=== PATIENT | male | born 1955 | race Caucasian/White ===

== ENCOUNTER → 2016-07-05 08:23 | Outpatient (CLI) | payer BC ==
[2015-11-10 12:37] VITALS: BMI 35.2
[~2016-07-05 08:23] MED LIST: ELAVIL25 MG PO; JANUMET XR 50-1 EACH; KOMBIGLYZE XR1 EAC1; LEVOTHYROXINE75 MCG; LEVOXYL75 MCG PO; PRINIVIL20 MG; PRINIVIL20 MG PO; ZOCOR10 MG PO
--- NOTE | 2016-07-05 12:11 | NUR ---
Nutrition education for DMT2: Pt reports skipping lunch every day; pt is drinking several Mt. Dews, sweet tea every day; pt may drink 1 glass of water in a day. Pt also drinks a lot of Gartorade, especially during the summer months. 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 Pt will not eat any nonstarchy vegetable; pt only eats starch and meat. Ht: 6'1" Wt: 249# IBW: 184# +/- 10% BMI: 32.8 Reviewed CHO containing foods and the affect CHO have on glucose. Reviewed portion sizes of common CHO foods. Stressed the importance of eating meals at consistent times and to never skip meals. Advised pt to eliminate sugary drinks and drink only water to quench thirst. Advised pt to decrease the amount of CHO eaten at meals. Also advised pt to add a daily multivitamin due to pt not eating any nonstarchy vegetables. Reviewed the plate method of meal planning; reviewed sample menus with emphasis on CHO foods. Reviewed complication of uncontrolled DMT2; reviewed normal glucose numbers. Advised pt to check glucose readings @ least 4 times a day (fasting, before breakfast, 2 hours after breakfast, lunch dinner) for at least 1 week and record to have the big picture of where his glucose numbers are. Provided pt with printed diet information and RDN name and phone number. Pt with good understanding of information provided; however, RDN feels pt will not be compliant with all recommendations. RDN will be availalble if needed Thank you for the consult.
--- NOTE | 2016-07-05 12:24 | NUR ---
Nutrition education for gastric sleeve: S: Pt has been overweight since ~15 years old. Pt has tried several diets to lose weight without any success. Pts mother states pt does not eat very much and blames all her weight gain on medication for depression. Pt's diet recall reveals pt is eating quite a bit of food. Pt is drinking massive amounts of diet soda every day and getting very little exercise. Pt is very reluctant to answer my questions and looks to her mother to answer. However, as the session continued the pt has warmed up to me and is now asking questions. O: Ht: 5'2" Wt: 303# IBW: 110# +/-10% BMI: 55.4 Dx: extreme obesity A: Pt and mother are in denial about how much pt is eating during the day. RDN reviewed pre/post op diet progression. Reviewed diet homework to start today and make a habit before surgery. Pt advised to eliminate all carbonated beverages from diet and start drinking water. Pt to start taking multivitamin now. Pt does not have a post-surgery weight loss goal at this time. Pt states she will talk with doctor about this. Sample menus reviewed; protein supplements reviewed. P: Provided pt with printed diet information and RDN name and phone number. Pt has been reading the provided information from Dr. Borrero every day per mother. Pt seems to be ready to make the diet changes necessary to be successful post-surgery. RDN will be available if needed. Thank you for the consult.
== END | disposition home or self-care (01) ==
LOC: D.FANS 08:23
DX: E11.9 Type 2 diabetes mellitus without complications (principal)

== ENCOUNTER 2018-04-24 09:04 | Inpatient (IN) | payer BC ==
[~2018-04-24] VITALS: Ht 185.4 cm; Wt 108.2 kg
--- NOTE | ~2018-04-24 | CN ---
PATIENT NAME:MODESTO PEACOCK MEDICAL RECORD: [id number] : 57 LOCATION:D. D.2136 ADMIT DATE: 04/24/18 ACCOUNT: [id number] CONSULTING PHYSICIAN: ESTHELA WARNER MD REFERRING PHYSICIAN: ROBERT GEORGE DO DATE OF CONSULTATION: 04/27/2018 CONSULT REQUESTING PHYSICIAN: Robert George DO REASON FOR CONSULTATION: Pneumonia. HISTORY OF PRESENT ILLNESS: Mr. Peacock is a 62-year-old gentleman who is very hard of hearing. The history was taken by talking to the patient's . Initially, he was seen in the urgent care. He was given Rocephin injection, but the patient was not getting any fever. He has a running fever and shortness of breath. In the ER evaluation, found out he has a left lower lobe pneumonia. Repeat chest x-ray showed he has bilateral lower lobe infiltrate with associated atelectasis. The patient had a reaction to Bactrim a few days ago while he had a procedure in [place]. So, the family is not sure that it was the previous skin rash and erythema that he reacted to Rocephin, that had been discontinued and started on him a renal dose of Levaquin. REVIEW OF SYSTEMS: As in history of present illness. PAST MEDICAL HISTORY: 1. Gastroesophageal reflux disease. 2. Hypertension. 3. Chronic backache. 4. Hearing aid implant. 5. History of multiple sclerosis. PAST SURGICAL HISTORY: 1. He had a cholecystectomy in 2009. 2. He had a hearing implant. ALLERGIES: HE IS ALLERGIC TO BACTRIM. MEDICATIONS: He is on Levaquin. His other medication is reviewed. PERSONAL AND SOCIAL HISTORY: The patient never smoked and nondrinker. FAMILY HISTORY: Noncontributory. PHYSICAL EXAMINATION: GENERAL: Now, the patient is lying comfortably in bed. He is not in acute distress. VITAL SIGNS: The blood pressure is 148/64, pulse is 89, respiration is 18, temperature 97.9, SPO2 is 93% on room air. HEENT: Conjunctivae are pink. Sclerae are not icteric. NECK: Supple, no JVD. CHEST: The chest excursion is minimal both sides. There are bilateral crackles. No wheezing. HEART: Rhythm regular, normal sound, no murmur. ABDOMEN: Soft, bowel sounds present. No hepatosplenomegaly. RECTAL: Deferred. CONSULT REPORT [id number] MODESTO PEACOCK EXTREMITIES: No cyanosis, no clubbing, no pedal edema. SKIN: Warm, normal turgor. CENTRAL NERVOUS SYSTEM: The patient was hard of hearing. There is no other cranial nerve abnormality. IMAGING: Chest radiograph with the bilateral lower lobe infiltrate with associated atelectasis. LABORATORY DATA: CBC: WBC 13.3, hemoglobin 12.1, hematocrit 34.2, the platelet count 168. Chemistry: Sodium 129, potassium is 4.3, chloride 97, BUN is 67, creatinine 5.8, glucose 271. D-dimer was 2.97. IMPRESSION: 1. Pneumonia, bilateral lower lobe, most likely community-acquired pneumonia. 2. Drug reaction to antibiotic. 3. Acute kidney injury. 4. Skin rash secondary to drug reaction. 5. Leukocytosis. 6. Positive D-dimer, rule out PTE. The patient has a low probability V/Q scan. 7. Gastroesophageal reflux disease. RECOMMENDATION: 1. Antibiotic per ID. 2. Check ultrasound of the lower extremity to rule out DVT. 3. Flutter q.2. hourly when awake. 4. Follow up labs and chest radiograph. 5. The nephrology follows for the acute renal failure. Follow up labs and chest radiograph. Dr. George, thank you for involving me in the care of Mr. Peacock. TRANSINT:[id number] Voice Confirmation ID: [id number] DOCUMENT ID: [id number] ESTHELA WARNER MD at 1234 CC: [id number] DICTATION DATE: 04/27/18 1529 [facility] HEAD: 04/27/18 1553 DIS IN 04/30/18 [id number] [place] [address]
--- NOTE | ~2018-04-24 | MORECARE ---
CASE MANAGEMENT DISCHARGE SUMMARY PATIENT: MODESTO PEACOCK UNIT: [id number] ADM DATE: 04/24/18 AGE: 62 : 57 SEX: M ROOM/BED: D.2136 AUTHOR: MARCIE DINH PHYSICIAN: REFERRING PHYSICIAN: SYLVIA GEORGE DO DATE OF SERVICE: 04/27/18 Discharge Plan Patient Name: MODESTO PEACOCK Facility: [facility]:[place] : 1955 Planned Disposition: Home Anticipated Discharge Date: Discharge Date: Expected LOS: Initial Reviewer: [email or web address] Initial Review Date: 04/27/2018 Generated: 04/27/18 6:08 pm Comments DCP- Discharge Planning Updated by [email or web address]: Cristi Dailey on 04/27/18 4:[address] Patient Name: MODESTO PEACOCK Admission Status: ER Accout number: [id number] Admission Date: 04-24-2018 : 1955 Admission Diagnosis:ACUTE KIDNEY FAILURE, UNSPECIFIED Attending: Sylvia George Current LOS: 3 Anticipated DC Date: Planned Disposition: Home Primary Insurance: [employer] EXCHANGE Discharge Planning Comments: CM MET WITH PT AND SPOUSE IN ROOM TO DISCUSS DISCHARGE PLANNING AND NEEDS. MODESTO PEACOCK provided verbal consent to discuss current and ongoing needs with/in the presence of: SPOUSE, REMEDIOS. PT REPORTS LIVING AT HOME INDEPENDENTLY WITH SPOUSE. PT HAS NO MEDICAL EQUIPMENT AND NO OUTSIDE SERVICES ASSISTING IN THE HOME. CM DISCUSSED AVAILABILITY OF HOME HEALTH, REHAB SERVICES AND MEDICAL EQUIPMENT. PT DENIES DISCHARGE NEEDS, REPORTS HIS WILL PICK HIM UP FOR DISCHARGE HOME. PT PLANS TO DISCHARGE HOME WITH SPOUSE, HAS NO ANTICIPATED DISCHARGE NEEDS AT THIS TIME. CM TO FOLLOW AND ASSIST IF NEEDED. Line Decorator: Cristi Dailey DCPIA - Discharge Planning Initial Assessment Updated by [email or web address]: Cristi Dailey on 04/27/18 4:59 pm * Is the patient Alert and Oriented? Yes * How many steps to enter\exit or inside your home? 7-8 * PCP DR. GEORGE * Pharmacy [facility] [address] * Preadmission Environment Home with Family * ADLs Independent * Equipment None * Other Equipment NO MEDICAL EQUIPMENT PROVIDER PREFERENCE * List name and contact numbers for known caregivers / representatives who currently or will assist patient after discharge: REMEDIOS PEACOCK, SPOUSE, * Verbal permission to speak to the caregivers and representatives has been obtained from the patient. Yes * Community resources currently utilized None * Please name any agencies selected above. NONE * Additional services required to return to the preadmission environment? No * Can the patient safely return to the preadmission environment? Yes * Has this patient been hospitalized within the prior 30 days at any hospital? No Patient Name: MODESTO PEACOCK Page 53123 at 1708 All edits/amendments must be made on the electronic document DICTATION DATE: 04/27/181707 ACCOUNT RESOLUTION SPECIALIST: RICKEY 04/27/181707 RPT#: [id number] MA DATE: STATUS: ADM IN [facility] [address] [place] [address] END OF REPORT
--- NOTE | ~2018-04-24 | EC ---
PATIENT:MODESTO PEACOCK DATE OF SERVICE: 04/24/18 SEX: M MEDICAL RECORD: [id number] DATE OF : [birth year] LOCATION:D.M2 D.213 AGE OF PATIENT: 62 ADMISSION DATE: 04/24/18 REFERRING PHYSICIAN: INTERPRETING PHYSICIAN: JOAO LOCO MD ECHOCARDIOGRAM REPORT ECHO CHARGES 4 ECHO COMPLETE Date: 04/30/18 CLINICAL DIAGNOSIS: AFIB ECHOCARDIOGRAPHIC MEASUREMENTS (adult normal given) AC root (d.<3.7cm) 2.9 cm LV Septum d (<1.2 cm> 1.1 cm Valve Excursion 1.0 cm LV Septum (systole) 1.3 cm Left Atria (s.<4.0cm> 3.5 cm LVPW d(<1.2cm) 1.4 cm RV (d.<2.3cm) 3.9 cm LVPW (sytole) 1.5 cm LV diastole(<5.6CM) 5.4 cm MV E-F(>70mm/sec) cm LV systole 4.5 cm LVOT Diameter 2.3 cm MV exc.(>10mm) cm Est.ejection fraction (50-75%) % DOPPLER: LVIT cm/sec A 56 cm/sec E 88 cm/sec LA cm/sec RVSP 33.3 mmHg LVOT 121 cm/sec AOP1/2T m/s Asc. Ao 175 cm/sec RVOT 63 cm/sec RA cm/sec PA 71 cm/sec AV Gradient Peak 12.3 mmHg AV Mean 7.1 mmHg AV Area 2.5 cm MV Gradient Peak 6.5 mmHg MV Mean 2.2 mmHg MV Area cm COMMENTS: Dispersion Mixer: Ti GREENANEUDY RANDY Color Matcher: 1 Dr. Loco TAPE# PACS Pericardial Effusion N DATE OF SERVICE: 04/30/2018 PROCEDURE: Echocardiogram. FINDINGS: 1. Left ventricle chamber size is within normal limits. Left ventricular systolic function is normal. Overall ejection fraction estimated at 50%. 2. Left atrium is within normal limits at 4.0 cm. Right atrium and right ventricle chamber sizes are mildly dilated. 3. Valvular structure have normal structure and motion. ECHOCARDIOGRAM REPORT [id number] MODESTO PEACOCK 4. Doppler interrogation reveals moderate mitral regurgitation, mild tricuspid regurgitation, no other valvular insufficiency or stenosis. Pulmonary systolic pressure is estimated normal at 33 mmHg. 5. No evidence of pericardial effusion or left ventricular thrombus. TRANSINT:[id number] Voice Confirmation ID: [id number] DOCUMENT ID: [id number] JOAO LOCO MD at 1059 CC: [id number] DICTATION DATE: 04/30/181804 FLOWER CHENILLER: 04/30/182049 DIS IN 04/30/18 [id number] [place] [id number]
--- NOTE | ~2018-04-24 | CN ---
PATIENT NAME:MODESTO PEACOCK MEDICAL RECORD: [id number] : 57 LOCATION:D. D.2136 ADMIT DATE: 04/24/18 ACCOUNT: [id number] CONSULTING PHYSICIAN: JOAO HERNANDEZ MD REFERRING PHYSICIAN: SYLVIA GEORGE DO DATE OF CONSULTATION: 04/30/2018 CARDIOLOGY CONSULT DIAGNOSES: 1. Atrial fibrillation. 2. Pneumonia. 3. Anemia. 4. Renal insufficiency. 5. Shortness of breath, dyspnea on exertion. 6. Diabetes. HISTORY OF PRESENT ILLNESS: This is a gentleman who presents with shortness of breath, dyspnea on exertion, found to have pneumonia. Initially, he was in sinus rhythm. He is now in atrial fibrillation. He is with a controlled rate of the atrial fibrillation. He has no previous cardiac history, no previous cardiac workup. He is currently on no AV blocking medications. The rate is approximately 100 with the atrial fibrillation. PHYSICAL EXAMINATION: GENERAL APPEARANCE: Well-nourished, well-developed, appears stated age. Level of distress, comfortable. PSYCHIATRIC: Mental status, alert, normal affect. Orientation, oriented to time, place and person. EYES: Lids and conjunctiva, noninjected. No discharge, no pallor. ENT: Lips, teeth, gums, normal dentition. Oropharynx, no cyanosis, no pallor. NECK: Carotid arteries, bilateral normal upstroke, no bruits, no thrills. JUGULAR VEINS: No jugular venous pressure or distention. CERVICAL LYMPH NODES: Nontender, nonenlarged. THYROID: Not enlarged. Nontender. No nodules. LUNGS: Respiratory effort, unlabored. CHEST: Normal curvature. No thoracic deformity. No chest wall tenderness. Percussion, resonant. Auscultation, clear. No wheezes, no rales, no rhonchi. CARDIOVASCULAR: Precordial exam, nondisplaced. No heaves or pericardial thrills. Rate and rhythm, regular. Heart sounds, normal S1, normal S2. No S3, no gallop, no rub. Systolic murmur, not heard. Diastolic murmur, not heard. EXTREMITIES: No cyanosis, no edema. Peripheral pulses, full and equal in all extremities, except as noted. No bruits appreciated. ABDOMEN: Soft, nondistended. Normal aorta. No bruit. Nontender. No masses. Liver, nontender, no hepatomegaly. Spleen, nontender, no splenomegaly. MUSCULOSKELETAL: No joint tenderness. No joint swelling. No erythema. NEUROLOGICAL: Normal gait, normal strength, normal tone. SKIN: Warm and dry. REVIEW OF SYSTEMS: The patient reports easy bruising but reports no swollen glands. The patient reports no fever, no night sweats, no significant weight gain, no significant weight loss. No significant exercise tolerance. The patient reports no dry eyes, no irritation, no vision change. Patient reports no difficulty hearing and no ear pain. Patient reports no frequent nose bleeds or nose and sinus problems. Patient reports on arm pain on exertion. No CONSULT REPORT [id number] MADONNAMODESTO PEDERSEN shortness of breath while lying down. No history of heart murmur. Patient reports no cough, no wheezing or coughing up blood. Patient reports no abdominal pain, no vomiting. Normal appetite. No diarrhea and not vomiting blood. No nausea and no constipation. Patient reports no incontinence. No difficulty urinating. No hematuria. No increased frequency. Patient reports no muscle aches. No weakness, no arthralgias, no back pain. No swelling of the extremities. Patient reports no abnormal mole, no jaundice, no rashes. Reports no loss of consciousness. No weakness and no numbness. No seizures, dizziness, or headaches. The patient reports no depression, no sleep disturbance, feeling safe in a relationship and no alcohol abuse. Patient reports on fatigue. Reports no runny nose or sinus pressure. No itching, no hives, and no frequent sneezing. OVERALL IMPRESSION: New onset atrial fibrillation. We will get an echocardiogram for workup and proceed with starting sotalol at 80 mg b.i.d. Hopefully, this will restore sinus rhythm. TRANSINT:[id number] Voice Confirmation ID: [id number] DOCUMENT ID: [id number] JOAO HERNANDEZ MD at 1059 CC: [id number] DICTATION DATE: 04/30/1849 REHAB MANAGER: 04/30/18 1023 DIS IN 04/30/18 [facility] [address] [place] [id number]
--- NOTE | ~2018-04-24 | MORECARE ---
CASE MANAGEMENT DISCHARGE SUMMARY PATIENT: MODESTO PEACOCK UNIT: [id number] ADM DATE: 04/24/18 AGE: 62 : 57 SEX: M ROOM/BED: D.2136 AUTHOR: MARCIE DINH PHYSICIAN: REFERRING PHYSICIAN: SYLVIA GEORGE DO DATE OF SERVICE: 05/01/18 Discharge Plan Patient Name: MODESTO PEACOCK Facility: [facility]:[place] : 1955 Planned Disposition: Home Anticipated Discharge Date: 04/30/18 Discharge Date: 04/30/2018 Expected LOS: 6 Initial Reviewer: [email or web address] Initial Review Date: 04/27/2018 Generated: 05/01/18 9:16 am Comments DCP- Discharge Planning Updated by [email or web address]: Cristi Dailey on 04/27/18 5:[address] Patient Name: MODESTO PEACOCK Admission Status: ER Accout number: [id number] Admission Date: 04-24-2018 : 1955 Admission Diagnosis:ACUTE KIDNEY FAILURE, UNSPECIFIED Attending: Sylvia George Current LOS: 3 Anticipated DC Date: Planned Disposition: Home Primary Insurance: [employer] EXCHANGE Discharge Planning Comments: CM MET WITH PT AND SPOUSE IN ROOM TO DISCUSS DISCHARGE PLANNING AND NEEDS. MODESTO PEACOCK provided verbal consent to discuss current and ongoing needs with/in the presence of: SPOUSE, REMEDIOS. PT REPORTS LIVING AT HOME INDEPENDENTLY WITH SPOUSE. PT HAS NO MEDICAL EQUIPMENT AND NO OUTSIDE SERVICES ASSISTING IN THE HOME. CM DISCUSSED AVAILABILITY OF HOME HEALTH, REHAB SERVICES AND MEDICAL EQUIPMENT. PT DENIES DISCHARGE NEEDS, REPORTS HIS WILL PICK HIM UP FOR DISCHARGE HOME. PT PLANS TO DISCHARGE HOME WITH SPOUSE, HAS NO ANTICIPATED DISCHARGE NEEDS AT THIS TIME. CM TO FOLLOW AND ASSIST IF NEEDED. Population Health Coach: Cristi Dailey DCPIA - Discharge Planning Initial Assessment Updated by [id number]: Cristi Dailey on 04/27/18 4:59 pm * Is the patient Alert and Oriented? Yes * How many steps to enter\exit or inside your home? 7-8 * PCP DR. GEORGE * Pharmacy [facility] [address] * Preadmission Environment Home with Family * ADLs Independent * Equipment None * Other Equipment NO MEDICAL EQUIPMENT PROVIDER PREFERENCE * List name and contact numbers for known caregivers / representatives who currently or will assist patient after discharge: REMEDIOS PEACOCK, SPOUSE, * Verbal permission to speak to the caregivers and representatives has been obtained from the patient. Yes * Community resources currently utilized None * Please name any agencies selected above. NONE * Additional services required to return to the preadmission environment? No * Can the patient safely return to the preadmission environment? Yes * Has this patient been hospitalized within the prior 30 days at any hospital? No Last DP export: 04/27/18 5:08 p Patient Name: MODESTO PEACOCK Page 94490 at 0816 All edits/amendments must be made on the electronic document DICTATION DATE: 05/01/18815 SHARED SERVICES REPRESENTATIVE: RICKEY 05/01/18815 RPT#: [id number] DC DATE:04/30/18 STATUS: DIS IN [facility] [address] [place] [address] END OF REPORT
[2018-04-24] MEDS ORDERED: PRED FORTE5 ML LEFT EYE ×2 (09:09→15:09)
[2018-04-24] MEDS ORDERED: ZYLOPRIM100 MG PO (09:10)
[2018-04-24] MEDS ORDERED: OMEPRAZOLE40 MG PO (09:10)
[2018-04-24] MEDS ORDERED: CENTRUM COMPLE1 EACH PO (09:10)
[2018-04-24] MEDS ORDERED: GLIPIZIDE10 MG PO (09:11)
[2018-04-24 10:43] LABS: BASOPHILS 0.1 % (0-2); EOSINOPHILS 2.8 % (0-7); HEMATOCRIT 42.4 % (42.0-54.0); IMMATURE GRANULOCYTES 1.7 % (0-5); LYMPHOCYTES 3.7 % (15-50); MCH 30.2 pg (26.0-34.0); MCHC 35.4 g/dL (31.0-37.0); MCV 85.3 fL (80.0-100.0); MEAN PLATELET VOLUME 9.4 fL (7.4-10.4); MONOCYTES 2.7 % (2-11); RBC 4.97 10x6/uL (4.20-6.10); RDW 12.8 % (11.5-14.5); WBC 8.1 10x3/uL (4.8-10.8)
[2018-04-24 10:52] LABS: APTT 22.6 SECONDS (22.8-39.4); INR 1.18 (0.85-1.17); PROTIME 14.6 SECONDS (11.6-15.0)
[2018-04-24 10:53] LABS: D-DIMER-QUANTITATIVE 2.97 ug/mLFEU (0.20-0.54)
[2018-04-24 10:54] LABS: PLATELET COUNT 167 10x3/uL (130-400)
[2018-04-24 10:57] LABS: ALBUMIN 3.4 g/dL (3.4-5.0); ALKALINE PHOSPHATASE 323 U/L (46-116); ALT (SGPT) 225 U/L (10-68); CALC OSMOLALITY 268 mosm/kg (275-300); CALCIUM 9.3 mg/dL (8.5-10.1); CARBON DIOXIDE 22.6 mmol/L (21.0-32.0); CHLORIDE - SERUM 94 mmol/L (98-107); CREATININE - SERUM 2.9 mg/dL (0.6-1.3); POTASSIUM - SERUM 4.7 mmol/L (3.5-5.1); PROTEIN - SERUM 7.6 g/dL (6.4-8.2); SODIUM 129 mmol/L (136-145); UREA NITROGEN 29 mg/dL (7-18); eGFR NON AFRICAN AMERICAN 24 mL/min (90-120)
[2018-04-24 10:58] LABS: GLUCOSE 177 mg/dL (74-106)
[2018-04-24 11:09] LABS: CKMB 1.4 U/L (0.0-3.6); CREATINE KINASE 311 UL (21-232); TROPONIN-I < 0.017 ng/mL (0.000-0.060)
[2018-04-24 13:34] LABS: AMORPHOUS SEDIMENT >1+ /lpf (NONE SEEN); APPEARANCE CLOUDY (CLEAR); BACTERIA FEW /hpf (NONE SEEN); BILIRUBIN NEGATIVE (NEGATIVE); COLOR DK YELLOW (YELLOW); EPITHELIAL CELLS NSEEN /hpf (0-5); GLUCOSE NEGATIVE (NEGATIVE); KETONE NEGATIVE (NEGATIVE); NITRITE NEGATIVE (NEGATIVE); PROTEIN 2+ mg/dL (NEGATIVE); RED CELLS - URINE RARE /hpf (0-5); UROBILINOGEN NORMAL (NORMAL); WHITE CELLS - URINE 0-5 /hpf (0-5)
[2018-04-24 13:53] VITALS: BP 141/66
[2018-04-24 15:48] VITALS: BP 138/72
[2018-04-24 16:10] VITALS: BP 138/72; BMI 31.6
[2018-04-24 20:00] VITALS: BP 125/53
[2018-04-25] VITALS: BP 104/46
[2018-04-25 04:00] VITALS: BP 102/47
[2018-04-25 05:02] LABS: BASOPHILS 0.1 % (0-2); EOSINOPHILS 2.9 % (0-7); HEMATOCRIT 37.4 % (42.0-54.0); HEMOGLOBIN 13.2 g/dL (13.5-17.5); IMMATURE GRANULOCYTES 1.1 % (0-5); LYMPHOCYTES 4.4 % (15-50); MCH 29.5 pg (26.0-34.0); MCHC 35.3 g/dL (31.0-37.0); MCV 83.7 fL (80.0-100.0); MEAN PLATELET VOLUME 9.2 fL (7.4-10.4); NEUTROPHILS 89.5 % (40-80); PLATELET COUNT 160 10x3/uL (130-400); RBC 4.47 10x6/uL (4.20-6.10); RDW 12.9 % (11.5-14.5); WBC 9.4 10x3/uL (4.8-10.8)
[2018-04-25 05:19] LABS: ANION GAP 18.6 mmol/L (8-16); CALCIUM 7.7 mg/dL (8.5-10.1); CARBON DIOXIDE 18.8 mmol/L (21.0-32.0); POTASSIUM - SERUM 4.4 mmol/L (3.5-5.1)
[2018-04-25 05:24] LABS: CREATININE - SERUM 5.1 mg/dL (0.6-1.3)
[2018-04-25 06:29] LABS: ALBUMIN 2.7 g/dL (3.4-5.0); BILIRUBIN - DIRECT 2.14 mg/dL (0.00-0.30); BILIRUBIN - INDIRECT 0.35 mg/dL (0.00-1.00); BILIRUBIN - TOTAL 2.49 mg/dL (0.2-1.3); PROTEIN - SERUM 6.2 g/dL (6.4-8.2)
[2018-04-25 08:30] VITALS: BP 108/60
[2018-04-25 11:28] VITALS: BP 118/46
[2018-04-25 13:53] VITALS: BMI 30.8
[2018-04-25 16:48] VITALS: BP 129/59
[2018-04-25 20:00] VITALS: BP 121/61
[2018-04-25 21:43] LABS: APPEARANCE HAZY (CLEAR); BILIRUBIN 2+ (NEGATIVE); COLOR DK YELLOW (YELLOW); GLUCOSE NEGATIVE (NEGATIVE); KETONE NEGATIVE (NEGATIVE); NITRITE NEGATIVE (NEGATIVE); PROTEIN 1+ mg/dL (NEGATIVE); SPECIFIC GRAVITY 1.015 (1.005-1.020); UROBILINOGEN NORMAL (NORMAL)
[2018-04-25 21:47] LABS: AMORPHOUS SEDIMENT >1+ /lpf (NONE SEEN); BACTERIA MANY /hpf (NONE SEEN); GRANULAR CAST 0-5 /lpf (NONE SEEN); HYALINE CAST RARE /lpf (NONE SEEN); MUCUS <1+ /lpf (NONE SEEN); RED CELLS - URINE OCC /hpf (0-5); WHITE CELLS - URINE 0-5 /hpf (0-5)
[2018-04-25 21:52] LABS: POTASSIUM - URINE 32.5 MMOL/L (12.0-62.0); PRO/CRE RATIO URINE 0.8 mg/g; PROTEIN - URINE 123.9 mg/dL (0.0-11.9)
[2018-04-26] VITALS: BP 118/54
[2018-04-26 04:00] VITALS: BP 120/64
[2018-04-26 05:28] LABS: ALBUMIN 2.2 g/dL (3.4-5.0); BILIRUBIN - TOTAL 2.58 mg/dL (0.2-1.3); CARBON DIOXIDE 17.4 mmol/L (21.0-32.0); MAGNESIUM - SERUM 1.3 mg/dL (1.8-2.4); PHOSPHOROUS 2.1 mg/dL (2.5-4.9); PROTEIN - SERUM 5.6 g/dL (6.4-8.2)
[2018-04-26 05:32] LABS: ANION GAP 18.8 mmol/L (8-16); CREATININE - SERUM 6.4 mg/dL (0.6-1.3); POTASSIUM - SERUM 5.2 mmol/L (3.5-5.1)
[2018-04-26 05:52] LABS: BASOPHILS 0.2 % (0-2); EOSINOPHILS 1.1 % (0-7); HEMOGLOBIN 12.3 g/dL (13.5-17.5); IMMATURE GRANULOCYTES 0.9 % (0-5); LYMPHOCYTES 8.3 % (15-50); MCH 29.4 pg (26.0-34.0); MCHC 35.1 g/dL (31.0-37.0); MCV 83.7 fL (80.0-100.0); MEAN PLATELET VOLUME 9.2 fL (7.4-10.4); NEUTROPHILS 87.5 % (40-80); PLATELET COUNT 146 10x3/uL (130-400); RBC 4.18 10x6/uL (4.20-6.10); RDW 13.1 % (11.5-14.5); WBC 8.1 10x3/uL (4.8-10.8)
[2018-04-26 08:10] VITALS: BP 136/71
[2018-04-26 11:19] VITALS: BP 122/69
[2018-04-26 14:25] LABS: ANION GAP 20.7 mmol/L (8-16); CALCIUM 7.8 mg/dL (8.5-10.1); CARBON DIOXIDE 15.6 mmol/L (21.0-32.0); CREATININE - SERUM 6.5 mg/dL (0.6-1.3); POTASSIUM - SERUM 4.3 mmol/L (3.5-5.1)
[2018-04-26 15:28] VITALS: BP 106/73
[2018-04-26 20:00] VITALS: BP 129/64
[2018-04-27] VITALS: BP 112/47
[2018-04-27 04:00] VITALS: BP 125/57
[2018-04-27 07:06] LABS: BASOPHILS 0.4 % (0-2); EOSINOPHILS 0.3 % (0-7); HEMATOCRIT 34.2 % (42.0-54.0); HEMOGLOBIN 12.1 g/dL (13.5-17.5); IMMATURE GRANULOCYTES 0.6 % (0-5); LYMPHOCYTES 9.1 % (15-50); MCH 29.2 pg (26.0-34.0); MCHC 35.4 g/dL (31.0-37.0); MCV 82.6 fL (80.0-100.0); MONOCYTES 4.9 % (2-11); NEUTROPHILS 84.7 % (40-80); PLATELET COUNT 168 10x3/uL (130-400); RBC 4.14 10x6/uL (4.20-6.10); RDW 13.4 % (11.5-14.5)
[2018-04-27 07:09] LABS: WBC 13.3 10x3/uL (4.8-10.8)
[2018-04-27 07:29] LABS: ALBUMIN 2.4 g/dL (3.4-5.0); ANION GAP 17.4 mmol/L (8-16); BILIRUBIN - TOTAL 1.46 mg/dL (0.2-1.3); CALCIUM 8.2 mg/dL (8.5-10.1); CARBON DIOXIDE 18.9 mmol/L (21.0-32.0); CREATININE - SERUM 5.8 mg/dL (0.6-1.3); POTASSIUM - SERUM 4.3 mmol/L (3.5-5.1); PROTEIN - SERUM 6.3 g/dL (6.4-8.2)
[2018-04-27 07:30] LABS: MAGNESIUM - SERUM 1.7 mg/dL (1.8-2.4); PHOSPHOROUS 3.5 mg/dL (2.5-4.9)
[2018-04-27 08:05] VITALS: BP 127/73
[2018-04-27 11:59] VITALS: BP 153/69
[2018-04-27 14:53] VITALS: BP 148/64
[2018-04-27 21:00] VITALS: BP 131/51
[2018-04-28] VITALS: BP 132/67
[2018-04-28 04:00] VITALS: BP 118/56
[2018-04-28 07:03] LABS: BASOPHILS 0.2 % (0-2); EOSINOPHILS 0.5 % (0-7); HEMATOCRIT 34.5 % (42.0-54.0); HEMOGLOBIN 11.9 g/dL (13.5-17.5); IMMATURE GRANULOCYTES 1.3 % (0-5); MCHC 34.5 g/dL (31.0-37.0); MCV 84.1 fL (80.0-100.0); MEAN PLATELET VOLUME 9.8 fL (7.4-10.4); MONOCYTES 9.8 % (2-11); NEUTROPHILS 78.2 % (40-80); PLATELET COUNT 178 10x3/uL (130-400); RDW 13.8 % (11.5-14.5); WBC 12.8 10x3/uL (4.8-10.8)
[2018-04-28 07:17] LABS: ALBUMIN 2.4 g/dL (3.4-5.0); ANION GAP 17.4 mmol/L (8-16); BILIRUBIN - TOTAL 0.94 mg/dL (0.2-1.3); CALCIUM 8.1 mg/dL (8.5-10.1); CARBON DIOXIDE 19.7 mmol/L (21.0-32.0); MAGNESIUM - SERUM 1.7 mg/dL (1.8-2.4); PHOSPHOROUS 3.7 mg/dL (2.5-4.9); POTASSIUM - SERUM 4.1 mmol/L (3.5-5.1); PROTEIN - SERUM 6.3 g/dL (6.4-8.2)
[2018-04-28 07:24] LABS: CREATININE - SERUM 3.6 mg/dL (0.6-1.3)
[2018-04-28 07:53] VITALS: BP 111/57
[2018-04-28 10:58] VITALS: BP 141/69
[2018-04-28 16:03] VITALS: BP 148/62
[2018-04-28 20:45] VITALS: BP 117/56
[2018-04-29 01:15] VITALS: BP 127/59
[2018-04-29 04:30] VITALS: BP 170/65
[2018-04-29 05:08] LABS: BASOPHILS 0.3 % (0-2); EOSINOPHILS 1.9 % (0-7); HEMATOCRIT 34.7 % (42.0-54.0); HEMOGLOBIN 11.9 g/dL (13.5-17.5); IMMATURE GRANULOCYTES 4.5 % (0-5); LYMPHOCYTES 14.6 % (15-50); MCH 29.1 pg (26.0-34.0); MCHC 34.3 g/dL (31.0-37.0); MCV 84.8 fL (80.0-100.0); MEAN PLATELET VOLUME 9.4 fL (7.4-10.4); MONOCYTES 11.4 % (2-11); NEUTROPHILS 67.3 % (40-80); PLATELET COUNT 170 10x3/uL (130-400); RBC 4.09 10x6/uL (4.20-6.10); WBC 12.5 10x3/uL (4.8-10.8)
[2018-04-29 05:28] LABS: ALBUMIN 2.4 g/dL (3.4-5.0); ANION GAP 14.9 mmol/L (8-16); BILIRUBIN - TOTAL 0.96 mg/dL (0.2-1.3); CALCIUM 8.3 mg/dL (8.5-10.1); MAGNESIUM - SERUM 1.4 mg/dL (1.8-2.4); PHOSPHOROUS 3.4 mg/dL (2.5-4.9); PROTEIN - SERUM 6.5 g/dL (6.4-8.2)
[2018-04-29 05:29] LABS: CREATININE - SERUM 2.2 mg/dL (0.6-1.3); POTASSIUM - SERUM 4.9 mmol/L (3.5-5.1)
[2018-04-29 08:26] VITALS: BP 140/65
[2018-04-29] MEDS ORDERED: KENALOG 0.1 % 115 GM TOPICAL (10:36)
[2018-04-29] MEDS ORDERED: HUMALOG 30100 UNITS/ SC (10:37)
[2018-04-29] MEDS ORDERED: PREDNISONE20 MG PO (10:38)
[2018-04-29 13:39] VITALS: BP 139/62
[2018-04-29 17:13] VITALS: BP 104/62
[2018-04-29 20:23] VITALS: BP 139/64
[2018-04-30 01:20] VITALS: BP 128/85
[2018-04-30 05:10] LABS: BASOPHILS 0.3 % (0-2); EOSINOPHILS 2.3 % (0-7); HEMATOCRIT 36.4 % (42.0-54.0); HEMOGLOBIN 12.3 g/dL (13.5-17.5); IMMATURE GRANULOCYTES 5.3 % (0-5); MCH 28.9 pg (26.0-34.0); MCHC 33.8 g/dL (31.0-37.0); MCV 85.4 fL (80.0-100.0); MEAN PLATELET VOLUME 9.3 fL (7.4-10.4); MONOCYTES 10.6 % (2-11); NEUTROPHILS 59.5 % (40-80); PLATELET COUNT 189 10x3/uL (130-400); RBC 4.26 10x6/uL (4.20-6.10); RDW 13.9 % (11.5-14.5); WBC 11.5 10x3/uL (4.8-10.8)
[2018-04-30 05:15] VITALS: BP 122/72
[2018-04-30 05:21] LABS: ALBUMIN 2.5 g/dL (3.4-5.0); ANION GAP 11.2 mmol/L (8-16); BILIRUBIN - TOTAL 1.1 mg/dL (0.2-1.3); MAGNESIUM - SERUM 1.3 mg/dL (1.8-2.4); POTASSIUM - SERUM 4.2 mmol/L (3.5-5.1); PROTEIN - SERUM 6.8 g/dL (6.4-8.2)
[2018-04-30 05:22] LABS: CREATININE - SERUM 1.6 mg/dL (0.6-1.3); PHOSPHOROUS 4.4 mg/dL (2.5-4.9)
[2018-04-30 07:44] LABS: CKMB 1.7 U/L (0.0-3.6); CREATINE KINASE 78 UL (21-232)
[2018-04-30 07:45] LABS: TROPONIN-I < 0.017 ng/mL (0.000-0.060)
[2018-04-30 11:51] VITALS: BP 119/63
[2018-04-30 13:14] LABS: CKMB 1.4 U/L (0.0-3.6); CREATINE KINASE 62 UL (21-232)
[2018-04-30 13:15] LABS: TROPONIN-I < 0.017 ng/mL (0.000-0.060)
[2018-04-30 16:04] VITALS: BP 149/81
[2018-04-30 16:12] VITALS: Ht 185.4 cm; Wt 108.2 kg
[2018-04-30] MEDS ORDERED: BETAPACE 80 MG80 MG PO (17:05)
[2018-05-01 13:18] LABS: HEPATITIS C ANTIBODY <0.1 S/CO RAT (0.0-0.9)
== END 2018-04-30 17:44 | disposition home or self-care (01) | DRG 698 ==
LOC: D.ER 09:04 → D.M2 14:14
PROVIDERS: Family Medicine; Internal Medicine
DX: N00.8 Acute nephritic syndrome with other morphologic changes (principal); J18.9 Pneumonia, unspecified organism; E87.1 Hypo-osmolality and hyponatremia; N17.9 Acute kidney failure, unspecified; G35 Multiple sclerosis; E11.9 Type 2 diabetes mellitus without complications; I10 Essential (primary) hypertension; K21.9 Gastro-esophageal reflux disease without esophagitis; E78.5 Hyperlipidemia, unspecified; L27.0 Generalized skin eruption due to drugs and medicaments taken internally; T37.0X5A Adverse effect of sulfonamides, initial encounter; I48.91 Unspecified atrial fibrillation; D64.9 Anemia, unspecified; E87.5 Hyperkalemia

== ENCOUNTER → 2018-05-21 09:45 | Outpatient (CLI) | payer BC ==
[2018-04-30 16:12] VITALS: BMI 30.8
[~2018-05-21 09:45] MED LIST changes: +BETAPACE 80 MG80 MG PO; +CENTRUM COMPLE1 EACH PO; +GLIPIZIDE10 MG PO; +HUMALOG 30100 UNITS/ SC; +KENALOG 0.1 % 115 GM TOPICAL; +OMEPRAZOLE40 MG PO; +PRED FORTE5 ML LEFT EYE; +PREDNISONE20 MG PO; +ZYLOPRIM100 MG PO
[2018-05-21 10:28] LABS: ALBUMIN 3.4 g/dL (3.4-5.0); ANION GAP 9.5 mmol/L (8-16); BILIRUBIN - TOTAL 0.35 mg/dL (0.2-1.3); CALCIUM 8.8 mg/dL (8.5-10.1); CARBON DIOXIDE 30.1 mmol/L (21.0-32.0); CREATININE - SERUM 1.3 mg/dL (0.6-1.3); POTASSIUM - SERUM 4.6 mmol/L (3.5-5.1); PROTEIN - SERUM 6.7 g/dL (6.4-8.2)
== END | disposition home or self-care (01) ==
LOC: D.LAB 09:45
PROVIDERS: Family Medicine
DX: R19.7 Diarrhea, unspecified (principal)

== ENCOUNTER 2018-07-03 04:16 | Inpatient (IN) | payer BC ==
[~2018-07-03] VITALS: Ht 185.4 cm; Wt 113.4 kg
[2018-07-03] VITALS (14 sets, daily range): BP systolic 116–153; BP diastolic 62–86; BMI 33.0
[2018-07-03 04:59] LABS: BASOPHILS 0.1 % (0-2); EOSINOPHILS 0 % (0-7); HEMATOCRIT 45.9 % (42.0-54.0); HEMOGLOBIN 16.1 g/dL (13.5-17.5); IMMATURE GRANULOCYTES 0.4 % (0-5); LYMPHOCYTES 7.9 % (15-50); MCHC 35.1 g/dL (31.0-37.0); MCV 85.6 fL (80.0-100.0); MEAN PLATELET VOLUME 8.9 fL (7.4-10.4); MONOCYTES 8.2 % (2-11); NEUTROPHILS 83.4 % (40-80); RBC 5.36 10x6/uL (4.20-6.10); RDW 13.7 % (11.5-14.5); WBC 11.2 10x3/uL (4.8-10.8)
[2018-07-03 05:15] LABS: ALKALINE PHOSPHATASE 134 U/L (46-116); ALT (SGPT) 47 U/L (10-68); BILIRUBIN - TOTAL 1.27 mg/dL (0.2-1.3); CALC OSMOLALITY 279 mosm/kg (275-300); CALCIUM 9.8 mg/dL (8.5-10.1); CARBON DIOXIDE 22.2 mmol/L (21.0-32.0); CHLORIDE - SERUM 95 mmol/L (98-107); CREATININE - SERUM 2.8 mg/dL (0.6-1.3); GLUCOSE 252 mg/dL (74-106); PLATELET COUNT 382 10x3/uL (130-400); POTASSIUM - SERUM 4.5 mmol/L (3.5-5.1); PROTEIN - SERUM 8.6 g/dL (6.4-8.2); SODIUM 133 mmol/L (136-145); UREA NITROGEN 27 mg/dL (7-18); eGFR NON AFRICAN AMERICAN 25 mL/min (90-120)
[2018-07-03 05:18] LABS: AMYLASE - SERUM 41 U/L (25-115); LIPASE 182 U/L (73-393); TROPONIN-I < 0.017 ng/mL (0.000-0.060)
[2018-07-03 05:54] LABS: APPEARANCE HAZY (CLEAR); BILIRUBIN NEGATIVE (NEGATIVE); COLOR DK YELLOW (YELLOW); GLUCOSE 50 mg/dL (NEGATIVE); KETONE NEGATIVE (NEGATIVE); NITRITE NEGATIVE (NEGATIVE); PROTEIN 2+ mg/dL (NEGATIVE); UROBILINOGEN NORMAL (NORMAL)
[2018-07-03 05:55] LABS: BACTERIA MODERATE /hpf (NONE SEEN); CALCIUM OXALATE CRYSTALS OCC /hpf (NONE SEEN); EPITHELIAL CELLS 0-5 /hpf (0-5); RED CELLS - URINE 0-5 /hpf (0-5); WHITE CELLS - URINE 0-5 /hpf (0-5)
[2018-07-03] MEDS ORDERED: MULTI-DAY VITAM1 TAB PO (12:38)
[2018-07-03] MEDS ORDERED: OMEPRAZOLE20 M1 PO (12:38)
[2018-07-03 15:51] LABS: ANION GAP 12.1 mmol/L (8-16); CALCIUM 8.4 mg/dL (8.5-10.1); CARBON DIOXIDE 28.1 mmol/L (21.0-32.0); CREATININE - SERUM 2.2 mg/dL (0.6-1.3); POTASSIUM - SERUM 4.2 mmol/L (3.5-5.1)
[2018-07-04 04:42] LABS: ANION GAP 14.3 mmol/L (8-16); BILIRUBIN - TOTAL 0.56 mg/dL (0.2-1.3); CALCIUM 7.9 mg/dL (8.5-10.1); CARBON DIOXIDE 24.7 mmol/L (21.0-32.0); MAGNESIUM - SERUM 1.4 mg/dL (1.8-2.4); PHOSPHOROUS 2.7 mg/dL (2.5-4.9)
[2018-07-04 04:53] LABS: ALBUMIN 2.9 g/dL (3.4-5.0); CREATININE - SERUM 1.6 mg/dL (0.6-1.3); PROTEIN - SERUM 6.3 g/dL (6.4-8.2)
[2018-07-04 05:15] LABS: BASOPHILS 0.3 % (0-2); EOSINOPHILS 0.8 % (0-7); IMMATURE GRANULOCYTES 0.3 % (0-5); LYMPHOCYTES 20.7 % (15-50); MCH 29.3 pg (26.0-34.0); MCHC 33.4 g/dL (31.0-37.0); MCV 87.5 fL (80.0-100.0); MEAN PLATELET VOLUME 8.6 fL (7.4-10.4); MONOCYTES 10.7 % (2-11); NEUTROPHILS 67.2 % (40-80); RDW 13.9 % (11.5-14.5)
[2018-07-04 05:17] LABS: HEMATOCRIT 36.5 % (42.0-54.0); HEMOGLOBIN 12.2 g/dL (13.5-17.5); PLATELET COUNT 298 10x3/uL (130-400); RBC 4.17 10x6/uL (4.20-6.10); WBC 7.5 10x3/uL (4.8-10.8)
[2018-07-04 05:36] VITALS: BP 132/67
[2018-07-04 08:45] VITALS: BP 136/59
[2018-07-04 12:59] VITALS: BP 136/65
[2018-07-04 14:01] VITALS: Ht 185.4 cm; Wt 113.4 kg
[2018-07-04 17:01] VITALS: BP 131/59
[2018-07-04 20:23] VITALS: BP 127/65
[2018-07-05 00:15] VITALS: BP 134/71
[2018-07-05 03:54] LABS: HEMATOCRIT 32.8 % (42.0-54.0); HEMOGLOBIN 11.3 g/dL (13.5-17.5); LYMPHOCYTES 33.1 % (15-50); MCH 29.4 pg (26.0-34.0); MCHC 34.5 g/dL (31.0-37.0); MEAN PLATELET VOLUME 7.5 fL (7.4-10.4); NEUTROPHILS 59.8 % (40-80); PLATELET COUNT 293 10x3/uL (130-400); RBC 3.84 10x6/uL (4.20-6.10); RDW 13.4 % (11.5-14.5)
[2018-07-05 03:55] LABS: MCV 85.4 fL (80.0-100.0); WBC 4.8 10x3/uL (4.8-10.8)
[2018-07-05 04:02] LABS: ANION GAP 13.2 mmol/L (8-16); CALCIUM 7.9 mg/dL (8.5-10.1); CARBON DIOXIDE 25.6 mmol/L (21.0-32.0); CREATININE - SERUM 1.3 mg/dL (0.6-1.3); POTASSIUM - SERUM 3.8 mmol/L (3.5-5.1)
[2018-07-05 04:23] VITALS: BP 124/70
[2018-07-05 08:22] VITALS: BP 149/68
--- NOTE | 2018-07-05 09:20 | MORECARE ---
CASE MANAGEMENT DISCHARGE SUMMARY PATIENT: MODESTO PEACOCK UNIT: [id number] ADM DATE: 07/03/18 AGE: 62 : 57 SEX: M ROOM/BED: D.2205 AUTHOR: MARCIE DINH PHYSICIAN: REFERRING PHYSICIAN: SYLVIA GEORGE DO DATE OF SERVICE: 07/05/18 Discharge Plan Patient Name: MODESTO PEACOCK [facility] [facility] 1955 Planned Disposition: Home Anticipated Discharge Date: Discharge Date: Expected LOS: Initial Reviewer: [email or web address] Initial Review Date: 07/03/2018 Generated: 07/05/18 10:19 am Patient Name: MODESTO PEACOCK Page 08056 at 0920 All edits/amendments must be made on the electronic document DICTATION DATE: 07/05/18918 OUT OF SCHOOL HOURS CARE WORKER: RICKEY 07/05/18918 RPT#: [id number] DC DATE: STATUS: ADM IN [facility] [address] [place] [address] END OF REPORT
--- NOTE | 2018-07-05 09:26 | MORECARE ---
CASE MANAGEMENT DISCHARGE SUMMARY PATIENT: MODESTO PEACOCK UNIT: [id number] ADM DATE: 07/03/18 AGE: 62 : 57 SEX: M ROOM/BED: D.2205 AUTHOR: MARCIE DINH PHYSICIAN: REFERRING PHYSICIAN: ROBERT BARRY DO DATE OF SERVICE: 07/05/18 Discharge Plan Patient Name: MODESTO PEACOCK [facility] [facility] 1955 Planned Disposition: Home Anticipated Discharge Date: Discharge Date: Expected LOS: Initial Reviewer: [email or web address] Initial Review Date: 07/03/2018 Generated: 07/05/18 10:26 am Comments DCP- Discharge Planning Updated by [email or web address]: Rosalba Catalan on 07/05/18 8:[address] Patient Name: MODESTO PEACOCK Admission Status: ER Accout number: [id number] Admission Date: 07-03-2018 : 1955 Admission Diagnosis: Attending: Robert Barry Current LOS: 2 Anticipated DC Date: Planned Disposition: Home Primary Insurance: [employer] EXCHANGE Discharge Planning Comments: CM met with patient to assess discharge planning needs. Patient lives independently at home and plans to return there today. He stated that he does not use any DME or HH services and does not need any at discharge. 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 He states his home is safe to return. CM will continue to follow and assist with DC planning as needed Business Operations Specialist: Rosalba Catalan DCPIA - Discharge Planning Initial Assessment Updated by [email or web address]: Rosalba Catalan on 07/05/18 9:21 am * Is the patient Alert and Oriented? Yes * How many steps to enter\exit or inside your home? * PCP DORIS * [facility] [address] * Preadmission Environment Home with Family * ADLs Independent * Equipment None * List name and contact numbers for known caregivers / representatives who currently or will assist patient after discharge: REMEDIOS PEACOCK [phone] * Verbal permission to speak to the caregivers and representatives has been obtained from the patient. N/A * Community resources currently utilized None * Additional services required to return to the preadmission environment? No * Can the patient safely return to the preadmission environment? Yes * Has this patient been hospitalized within the prior 30 days at any hospital? No Last DP export: 07/05/18 8:19 a Patient Name: MODESTO PEACOCK Page 70857 at 0926 All edits/amendments must be made on the electronic document DICTATION DATE: 07/05/18924 PRINT LINE TAILER: RICKEY 07/05/18924 RPT#: [id number] DC DATE: STATUS: ADM IN [facility] [address] [place] [address] END OF REPORT
== END 2018-07-05 10:24 | disposition home or self-care (01) | DRG 683 ==
LOC: D.ER 04:16 → D.MS 11:43
PROVIDERS: Family Medicine; Internal Medicine; ADMIT Family Medicine
DX: N17.9 Acute kidney failure, unspecified (principal); K56.7 Ileus, unspecified; E86.0 Dehydration; I10 Essential (primary) hypertension

== ENCOUNTER 2020-01-01 21:01 | Inpatient (IN) | payer BC ==
[~2020-01-01] VITALS: Ht 185.4 cm; Wt 109.8 kg
[~2020-01-01 21:01] MED LIST changes: +MULTI-DAY VITAM1 TAB PO; +OMEPRAZOLE20 M1 PO
[2020-01-01 21:47] LABS: BASOPHILS 0.2 % (0-2); EOSINOPHILS 0.9 % (0-7); HEMATOCRIT 48.6 % (42.0-54.0); HEMOGLOBIN 16.3 g/dL (13.5-17.5); IMMATURE GRANULOCYTES 0.3 % (0-5); LYMPHOCYTES 7.6 % (15-50); MCH 28.4 pg (26.0-34.0); MCHC 33.5 g/dL (31.0-37.0); MCV 84.8 fL (80.0-100.0); MEAN PLATELET VOLUME 8.7 fL (7.4-10.4); MONOCYTES 10.3 % (2-11); NEUTROPHILS 80.7 % (40-80); PLATELET COUNT 324 10x3/uL (130-400); RBC 5.73 10x6/uL (4.20-6.10); RDW 13.8 % (11.5-14.5)
[2020-01-01 21:53] LABS: CALC OSMOLALITY 273 mosm/kg (275-300); CALCIUM 9.9 mg/dL (8.5-10.1); CHLORIDE - SERUM 97 mmol/L (98-107); CREATININE - SERUM 3.1 mg/dL (0.6-1.3); POTASSIUM - SERUM 4.8 mmol/L (3.5-5.1); SODIUM 132 mmol/L (136-145); UREA NITROGEN 22 mg/dL (7-18); eGFR NON AFRICAN AMERICAN 22 mL/min (90-120)
[2020-01-01 22:06] LABS: ALBUMIN 4.5 g/dL (3.4-5.0); ALKALINE PHOSPHATASE 185 U/L (30-120); ALT (SGPT) 26 U/L (10-68); C-REACTIVE PROTEIN 6.1 mg/dL (0.0-0.9); CREATINE KINASE 93 UL (21-232); GLUCOSE 202 mg/dL (74-106); LIPASE 216 U/L (73-393); MAGNESIUM - SERUM 1.8 mg/dL (1.8-2.4); PRO BNP 70 pg/mL (0-125); PROTEIN - SERUM 8.8 g/dL (6.4-8.2); TROPONIN-I < 0.017 ng/mL (0.000-0.060)
--- NOTE | 2020-01-01 23:11 | NUR ---
NG TUBE PLACED IN LEFT NARE AND SECURED. CONFIRMED PLACEMENT WITH AUSCULTATION AND ASPIRATION OF STOMACH CONTENT. 2 LITERS OF CONTENT AT INSERTION. PT TOLERATED WELL. SUCTION PLACED ON LOWER INTERMITTENT.
[2020-01-02] VITALS (8 sets, daily range): BP systolic 106–136; BP diastolic 44–69; Ht 185.4 cm; Wt 109.8 kg
[2020-01-02] MEDS ORDERED: GLIPIZIDE10 MG PO (01:15)
[2020-01-02] MEDS ORDERED: LISINOPRIL5 MG PO (01:15)
[2020-01-02] MEDS ORDERED: LEVOXYL25 MCG PO (01:15)
--- NOTE | 2020-01-02 01:44 | NUR ---
ADMITTED TO ROOM. ORIENTED TO CALL LIGHT AND PLAN OF CARE. MONITOR SHOWS 86 SR. SCDS ON BILAT. NG NOTED TO LEFT NARE WITH DARK GREENISH LIQ IN TUBE. TO LIS. INCENTIVE SPIROMETRY GIVEN, EXPLAINED, AND DEMONSTRATED BACK FOR TEACH BACK. SPOUSE AT BEDSIDE. PAIN 7/10 TO ABDOMEN BUT IS REFUSING MEDS AT THIS TIME. CALL LIGHT IN REACH
--- NOTE | 2020-01-02 04:53 | NUR ---
NG STILL DRAINING GREENISH LIQ. HAS HAD 1 EPISODE OF PAIN AND NAUSEA RELIEVED BY MEDICATION. SPOUSE AT BEDSIDE
[2020-01-02 04:59] LABS: BASOPHILS 0.2 % (0-2); EOSINOPHILS 0.5 % (0-7); HEMATOCRIT 46.5 % (42.0-54.0); HEMOGLOBIN 15.3 g/dL (13.5-17.5); IMMATURE GRANULOCYTES 0.2 % (0-5); MCH 28.1 pg (26.0-34.0); MCHC 32.9 g/dL (31.0-37.0); MCV 85.3 fL (80.0-100.0); MEAN PLATELET VOLUME 8.9 fL (7.4-10.4); MONOCYTES 13.5 % (2-11); NEUTROPHILS 70.6 % (40-80); PLATELET COUNT 337 10x3/uL (130-400); RBC 5.45 10x6/uL (4.20-6.10); RDW 13.9 % (11.5-14.5)
[2020-01-02 05:17] LABS: WBC 8.3 10x3/uL (4.8-10.8)
[2020-01-02 05:20] LABS: ALBUMIN 3.8 g/dL (3.4-5.0); BILIRUBIN - TOTAL 1.01 mg/dL (0.2-1.3); CALCIUM 9.3 mg/dL (8.5-10.1); CARBON DIOXIDE 26.4 mmol/L (21.0-32.0); CREATININE - SERUM 2.6 mg/dL (0.6-1.3); POTASSIUM - SERUM 4.4 mmol/L (3.5-5.1); PROTEIN - SERUM 7.8 g/dL (6.4-8.2)
--- NOTE | 2020-01-02 07:30 | NUR ---
HE HAS A NG TUBE TO LIS, PUTTING OUT 700 CC ON PM SHIFT. HE DOES NOT HAVE ANY C/O PAIN OR NAUSEA. HIS IS AT THE BEDSIDE. THE CALL LIGHT IS WITHIN REACH.
[2020-01-02 14:19] LABS: SPECIFIC GRAVITY 1.025 (1.005-1.020)
[2020-01-02 14:26] LABS: BILIRUBIN NEGATIVE (NEGATIVE); GLUCOSE NEGATIVE (NEGATIVE); KETONE NEGATIVE (NEGATIVE); NITRITE NEGATIVE (NEGATIVE); UROBILINOGEN NORMAL (NORMAL)
[2020-01-02 14:27] LABS: AMORPHOUS SEDIMENT <1+ /lpf (NONE SEEN); BACTERIA FEW /hpf (NEGATIVE); EPITHELIAL CELLS 0-5 /hpf (0-5); HYALINE CAST 0-5 /lpf (NONE SEEN); RED CELLS - URINE OCC /hpf (0-5); WHITE CELLS - URINE OCC /hpf (NEGATIVE)
[2020-01-03] VITALS: BP 139/63
[2020-01-03 04:00] VITALS: BP 136/54
[2020-01-03 06:41] LABS: BASOPHILS 0.2 % (0-2); HEMATOCRIT 39.8 % (42.0-54.0); HEMOGLOBIN 12.8 g/dL (13.5-17.5); IMMATURE GRANULOCYTES 0.2 % (0-5); LYMPHOCYTES 21.2 % (15-50); MCH 28.1 pg (26.0-34.0); MCHC 32.2 g/dL (31.0-37.0); MEAN PLATELET VOLUME 8.6 fL (7.4-10.4); MONOCYTES 10.5 % (2-11); NEUTROPHILS 63.9 % (40-80); RBC 4.56 10x6/uL (4.20-6.10)
[2020-01-03 06:43] LABS: MCV 87.3 fL (80.0-100.0); PLATELET COUNT 261 10x3/uL (130-400); WBC 5.8 10x3/uL (4.8-10.8)
[2020-01-03 07:04] LABS: ALBUMIN 3.1 g/dL (3.4-5.0); BILIRUBIN - TOTAL 0.58 mg/dL (0.2-1.3); CALCIUM 8.6 mg/dL (8.5-10.1); CARBON DIOXIDE 25.1 mmol/L (21.0-32.0); POTASSIUM - SERUM 4.1 mmol/L (3.5-5.1); PROTEIN - SERUM 6.4 g/dL (6.4-8.2)
[2020-01-03 07:05] LABS: CREATININE - SERUM 1.8 mg/dL (0.6-1.3)
--- NOTE | 2020-01-03 09:00 | NUR ---
ALERT AND ORIENTED X4 WITH NG TUBE TO LEFT NARE TO LOW INTERMITTANT SUCTION. TELEMETRY INTACT. PATIENT HAVING SCAN PRIOR TO POTENTIAL SURGERY. CONTINUES NPO STATUS.ABDOMEN NONTENDER WITH BOWEL SOUNDS NOTED X4 ANTERIOR. ENCOURAGED TO USE CALL LIGHT FOR ASSSIT.
[2020-01-03 09:51] VITALS: BP 127/57
[2020-01-03 14:57] VITALS: BP 145/63
--- NOTE | 2020-01-03 17:35 | NUR ---
NG TUBE DISCONTINUED PER ORDER.ENCOURAGED TO USE CALL LIGHT FOR ASSSIT. PATIENT TO TRY CLEAR LIQUID DIET.
[2020-01-03 17:40] VITALS: BP 140/70
[2020-01-03 20:00] VITALS: BP 128/61
--- NOTE | 2020-01-04 03:36 | NUR ---
I have reviewed this patient and I concur with the Shift Assessment completed by the Licensed Practical Nurse today this shift.
[2020-01-04 07:16] LABS: HEMOGLOBIN 12.3 g/dL (13.5-17.5); LYMPHOCYTES 24.7 % (15-50); MCH 28.4 pg (26.0-34.0); MCHC 33.2 g/dL (31.0-37.0); MCV 85.5 fL (80.0-100.0); MEAN PLATELET VOLUME 8.2 fL (7.4-10.4); NEUTROPHILS 66.1 % (40-80); PLATELET COUNT 281 10x3/uL (130-400); RBC 4.33 10x6/uL (4.20-6.10); RDW 13.2 % (11.5-14.5); WBC 5.2 10x3/uL (4.8-10.8)
[2020-01-04 07:36] LABS: ALBUMIN 3.1 g/dL (3.4-5.0); ANION GAP 11.9 mmol/L (8-16); BILIRUBIN - TOTAL 0.55 mg/dL (0.2-1.3); CALCIUM 8.4 mg/dL (8.5-10.1); CARBON DIOXIDE 26.9 mmol/L (21.0-32.0); CREATININE - SERUM 1.5 mg/dL (0.6-1.3); POTASSIUM - SERUM 3.8 mmol/L (3.5-5.1); PROTEIN - SERUM 6.3 g/dL (6.4-8.2)
[2020-01-04 08:51] VITALS: BP 136/62
[2020-01-04 14:02] VITALS: BP 114/60
[2020-01-04 17:09] VITALS: BP 125/62
[2020-01-04 20:00] VITALS: BP 121/54
--- NOTE | 2020-01-05 04:00 | NUR ---
I have reviewed this patient and I concur with the Shift Assessment completed by the Licensed Practical Nurse today this shift.
[2020-01-05 05:42] LABS: HEMOGLOBIN 12.2 g/dL (13.5-17.5); LYMPHOCYTES 31.9 % (15-50); MCH 28.6 pg (26.0-34.0); MCHC 33.9 g/dL (31.0-37.0); MCV 84.3 fL (80.0-100.0); MEAN PLATELET VOLUME 8.2 fL (7.4-10.4); NEUTROPHILS 59.9 % (40-80); PLATELET COUNT 287 10x3/uL (130-400); RBC 4.27 10x6/uL (4.20-6.10); RDW 13.1 % (11.5-14.5); WBC 5.3 10x3/uL (4.8-10.8)
[2020-01-05 06:11] LABS: ALBUMIN 3.1 g/dL (3.4-5.0); ANION GAP 10.8 mmol/L (8-16); BILIRUBIN - TOTAL 0.27 mg/dL (0.2-1.3); CALCIUM 8.3 mg/dL (8.5-10.1); CARBON DIOXIDE 27.7 mmol/L (21.0-32.0); CREATININE - SERUM 1.5 mg/dL (0.6-1.3); POTASSIUM - SERUM 3.5 mmol/L (3.5-5.1); PROTEIN - SERUM 6.3 g/dL (6.4-8.2)
[2020-01-05 08:59] VITALS: BP 98/62
--- NOTE | 2020-01-05 09:00 | NUR ---
ALERT AND ORIENTED X4 WITH PATINET DENIES ANY ABDOMINAL PAIN OR DISCOMFORT. BOWEL SOUNDS NOTED X4 W/O TENDERNESS ON PALPATION. IVF INFUSING AT PRESCRIBED RATE WITH NO S/S OF INFECTION/INFILTRATION
--- NOTE | 2020-01-05 10:07 | NUR ---
PT REPORTS HE IS A NON SMOKER.
--- NOTE | 2020-01-05 10:45 | NUR ---
IV DISCONTINUED AND VERBALIZED UNDERSTANDING OF DISCOHARGE INSTRUCTIONS. STABLE AT TIME OF DEPARTURE UNDER CARE OF .
--- NOTE | 2020-01-05 16:29 | MORECARE ---
CASE MANAGEMENT DISCHARGE SUMMARY PATIENT: MODESTO PEACOCK UNIT: [id number] ADM DATE: 01/01/20 AGE: 64 : 57 SEX: M ROOM/BED: D.2202 AUTHOR: MARCIE DINH PHYSICIAN: REFERRING PHYSICIAN: KARINE EDMONDS MD DATE OF SERVICE: 01/05/20 Discharge Plan Patient Name: MODESTO PEACOCK [facility] [facility] 1955 Planned Disposition: Home Anticipated Discharge Date: 01/05/20 Discharge Date: 01/05/2020 Expected LOS: 4 Initial Reviewer: [email or web address] Initial Review Date: 01/02/2020 Generated: 01/05/20 5:28 pm Patient Name: MODESTO PEACOCK Page 38061 at 1629 All edits/amendments must be made on the electronic document DICTATION DATE: 01/05/201627 TYPE PROOF REPRODUCER: RICKEY 01/05/20 1628 RPT#: [id number] DC DATE:01/05/20 STATUS: DIS IN [facility] [address] [place] [address] END OF REPORT
--- NOTE | 2020-01-05 16:36 | MORECARE ---
CASE MANAGEMENT DISCHARGE SUMMARY PATIENT: MODESTO PEACOCK UNIT: [id number] ADM DATE: 01/01/20 AGE: 64 : 57 SEX: M ROOM/BED: D.2202 AUTHOR: ALLEGRA,DOC PHYSICIAN: REFERRING PHYSICIAN: KARINE EDMONDS MD DATE OF SERVICE: 01/05/20 Discharge Plan Patient Name: MODESTO PEACOCK Facility: [facility]:[place] : 1955 Planned Disposition: Home Anticipated Discharge Date: 01/05/20 Discharge Date: 01/05/2020 Expected LOS: 4 Initial Reviewer: [email or web address] Initial Review Date: 01/02/2020 Generated: 01/05/20 5:36 pm Comments DCP- Discharge Planning Updated by [email or web address]: Cat Dimas on 01/05/20 3:[address] Patient Name: MODESTO PEACOCK Admission Status: ER Accout number: [id number] Admission Date: 01-01-2020 : 1955 Admission Diagnosis:UNSPECIFIED ABDOMINAL PAIN Attending: KARINE KOHLER Current LOS: 4 Anticipated DC Date: 01-05-2020 Planned Disposition: Home Primary Insurance: [employer] EXCHANGE Discharge Planning Comments: CM met with patient to complete initial dc planning assessment. CM educated patient on the CM role and verbal consent given by patient to complete assessment. Patient lives at home with family. Patient is independent. At discharge patient plans to return home and feels this is a safe discharge. CM discussed availability of home health, rehab services, and medical equipment. Patient will have family to transport home. Patient denied known discharge needs at this time. CM will continue to follow and will assist as needed with dc plans/needs. Marketing Manager Health Communications: Cat Dimas DCPIA - Discharge Planning Initial Assessment Updated by [email or web address]: Cat Dmias on 01/05/20 4:29 pm * Is the patient Alert and Oriented? Yes * How many steps to enter\exit or inside your home? * PCP DORIS * Pharmacy [facility] * Preadmission Environment Home with Family * ADLs Independent * Equipment None * List name and contact numbers for known caregivers / representatives who currently or will assist patient after discharge: REMEDIOS PEACOCK - - [phone] * Verbal permission to speak to the caregivers and representatives has been obtained from the patient. Yes * Community resources currently utilized None * Additional services required to return to the preadmission environment? No * Can the patient safely return to the preadmission environment? Yes * Has this patient been hospitalized within the prior 30 days at any hospital? No Last DP export: 01/05/20 3:29 p Patient Name: MODESTO PEACOCK Page 53563 at 1636 All edits/amendments must be made on the electronic document DICTATION DATE: 01/05/201635 COMMERCIAL LOAN ASSISTANT: RICKEY 01/05/20 1636 RPT#: [id number] DC DATE:01/05/20 STATUS: DIS IN [facility] [address] [place] [address] END OF REPORT
== END 2020-01-05 10:45 | disposition home or self-care (01) | DRG 389 ==
LOC: D.ER 21:01 → D.MS 22:57
PROVIDERS: Family Medicine; ADMIT Family Medicine Adult Medicine; ATTEND Family Medicine Adult Medicine
PROC: 0D9670Z Drainage of Stomach with Drainage Device, Via Natural or Artificial Opening (ICD-10-PCS; principal; 2020-01-01)
DX: K56.609 Unspecified intestinal obstruction, unspecified as to partial versus complete obstruction (principal); E87.1 Hypo-osmolality and hyponatremia; N17.9 Acute kidney failure, unspecified; E86.0 Dehydration; E11.22 Type 2 diabetes mellitus with diabetic chronic kidney disease; E11.65 Type 2 diabetes mellitus with hyperglycemia; N18.9 Chronic kidney disease, unspecified; E03.9 Hypothyroidism, unspecified; E66.9 Obesity, unspecified; Z68.32 Body mass index [BMI] 32.0-32.9, adult

== ENCOUNTER 2020-08-29 09:04 | Inpatient (IN) | payer BC ==
[~2020-08-29] VITALS: Ht 185.4 cm; Wt 110.5 kg
[~2020-08-29 09:04] MED LIST changes: +GLUCOTROL XL 1010 MG PO; +LEVOXYL25 MCG PO; +LISINOPRIL5 MG PO
[2020-08-29] MEDS ORDERED: SODIUM BICARBO325 MG PO (09:22)
[2020-08-29 09:39] LABS: BASOPHILS 0.1 % (0-2); EOSINOPHILS 1.1 % (0-7); HEMATOCRIT 47.5 % (42.0-54.0); HEMOGLOBIN 15.9 g/dL (13.5-17.5); IMMATURE GRANULOCYTES 0.2 % (0-5); LYMPHOCYTES 9.6 % (15-50); MCH 28.3 pg (26.0-34.0); MCHC 33.5 g/dL (31.0-37.0); MCV 84.5 fL (80.0-100.0); MEAN PLATELET VOLUME 8.7 fL (7.4-10.4); MONOCYTES 5.8 % (2-11); NEUTROPHIL ABS# 8.69 10x3/uL (1.78-5.38); NEUTROPHILS 83.2 % (40-80); PLATELET COUNT 296 10x3/uL (130-400); RBC 5.62 10x6/uL (4.20-6.10); RDW 12.5 % (11.5-14.5); WBC 10.4 10x3/uL (4.8-10.8)
[2020-08-29 09:48] LABS: CALC OSMOLALITY 273 mosm/kg (275-300); CALCIUM 9.6 mg/dL (8.5-10.1); CARBON DIOXIDE 28.5 mmol/L (21.0-32.0); CHLORIDE - SERUM 95 mmol/L (98-107); CREATININE - SERUM 1.8 mg/dL (0.6-1.3); GLUCOSE 219 mg/dL (74-106); POTASSIUM - SERUM 4.3 mmol/L (3.5-5.1); SODIUM 132 mmol/L (136-145); UREA NITROGEN 17 mg/dL (7-18); eGFR NON AFRICAN AMERICAN 41 mL/min (90-120)
[2020-08-29 09:56] LABS: ALBUMIN 4.2 g/dL (3.4-5.0); ALKALINE PHOSPHATASE 185 U/L (30-120); ALT (SGPT) 34 U/L (10-68); AMYLASE - SERUM 46 U/L (25-115); BILIRUBIN - TOTAL 0.71 mg/dL (0.2-1.3); LIPASE 180 U/L (73-393); PROTEIN - SERUM 8.4 g/dL (6.4-8.2)
[2020-08-29 09:57] LABS: TROPONIN-I < 0.017 ng/mL (0.000-0.060)
--- NOTE | 2020-08-29 11:37 | NUR ---
URINE COLLECTED AND SENT TO LAB.
--- NOTE | 2020-08-29 11:40 | NUR ---
FAMILY GIVEN UPDATE ON PATIENT STATUS WITH PATIENT PERMISSION.
[2020-08-29 12:17] LABS: BILIRUBIN NEGATIVE (NEGATIVE); KETONE SMALL mg/dL (NEGATIVE); NITRITE NEGATIVE (NEGATIVE); UROBILINOGEN NORMAL mg/dL (< 2)
[2020-08-29 17:11] VITALS: BP 127/62
[2020-08-29 17:32] VITALS: BP 130/76; Ht 185.4 cm; Wt 110.5 kg
[2020-08-29] MEDS ORDERED: VITAMIN D325 MC1 PO (17:39)
[2020-08-29 20:07] VITALS: BP 141/73
[2020-08-30 00:15] VITALS: BP 133/76
[2020-08-30 05:03] VITALS: BP 142/67
[2020-08-30 07:04] LABS: ALBUMIN 3.2 g/dL (3.4-5.0); BILIRUBIN - TOTAL 0.54 mg/dL (0.2-1.3); CALCIUM 8.5 mg/dL (8.5-10.1); CARBON DIOXIDE 26.2 mmol/L (21.0-32.0); CREATININE - SERUM 1.6 mg/dL (0.6-1.3); MAGNESIUM - SERUM 1.8 mg/dL (1.8-2.4); PHOSPHOROUS 2.7 mg/dL (2.5-4.9); POTASSIUM - SERUM 4.2 mmol/L (3.5-5.1); PROTEIN - SERUM 6.6 g/dL (6.4-8.2)
[2020-08-30 07:21] LABS: BASOPHILS 0.1 % (0-2); EOSINOPHILS 4.6 % (0-7); HEMATOCRIT 40.8 % (42.0-54.0); HEMOGLOBIN 13.5 g/dL (13.5-17.5); IMMATURE GRANULOCYTES 0.3 % (0-5); LYMPHOCYTE ABS# 1.71 10x3/uL (1.32-3.57); LYMPHOCYTES 24.7 % (15-50); MCH 28.4 pg (26.0-34.0); MCHC 33.1 g/dL (31.0-37.0); MCV 85.9 fL (80.0-100.0); MEAN PLATELET VOLUME 8.8 fL (7.4-10.4); MONOCYTES 6.6 % (2-11); NEUTROPHIL ABS# 4.41 10x3/uL (1.78-5.38); NEUTROPHILS 63.7 % (40-80); PLATELET COUNT 265 10x3/uL (130-400); RBC 4.75 10x6/uL (4.20-6.10); RDW 12.7 % (11.5-14.5)
[2020-08-30 07:27] LABS: WBC 6.9 10x3/uL (4.8-10.8)
[2020-08-30 09:17] VITALS: BP 140/68
[2020-08-30 12:25] VITALS: BP 143/66
--- NOTE | 2020-08-30 13:45 | NUR ---
PATIENT UP TO BR AT THIS TIME. STATED HE WANTS TO TRY TO HAVE BM BEFORE HE TAKES THE MINERAL OIL AND SUPPOSITORY. NGT TAKEN OFF OF SUCTION. EXPLAINED I WOULD TRY TO CALL PHYSICIAN TO SEE IF HE WANTS US TO REMOVE THE NGT PER PATIENT REQUEST. VERBALIZED UNDERSTANDING. CALL LIGHT WITHIN REACH.
--- NOTE | 2020-08-30 14:15 | NUR ---
SPOKE WITH DR. OLIVIA. STATED HE IS CLOSE TO GET TUBE OUT BUT IS NOT THERE YET. WANTS PATIENT TO TAKE MINERAL OIL AND CLAMP NGT FOR 4 HOURS. VERBALIZED UNDERSTANDING AND EXPLAINED TO PATIENT. PATIENT STATED HE HAD A BM. STATED ALOT OF HARD STOOL CAME OUT. MINERAL OIL GIVEN THROUGH. NGT. NGT CLAMPED. CALL LIGHT WITHIN REACH. EXPLAINED I WOULD HOLD OFF ON SUPPOSITORY PER PATIENT REQUEST UNLESS HE HAS TO HAVE IT. VERBALIZED UNDERSTANDING. CALL LIGHT WITHIN REACH.
[2020-08-30 16:49] VITALS: BP 138/64
[2020-08-30 20:06] VITALS: BP 140/62
[2020-08-31 00:29] VITALS: BP 117/47
[2020-08-31 06:50] LABS: BASOPHILS 0.3 % (0-2); EOSINOPHILS 5.1 % (0-7); HEMATOCRIT 40.1 % (42.0-54.0); HEMOGLOBIN 13.4 g/dL (13.5-17.5); IMMATURE GRANULOCYTES 0.5 % (0-5); LYMPHOCYTE ABS# 1.39 10x3/uL (1.32-3.57); LYMPHOCYTES 23.1 % (15-50); MCH 28.4 pg (26.0-34.0); MCHC 33.4 g/dL (31.0-37.0); MEAN PLATELET VOLUME 8.5 fL (7.4-10.4); MONOCYTES 8.6 % (2-11); NEUTROPHIL ABS# 3.75 10x3/uL (1.78-5.38); NEUTROPHILS 62.4 % (40-80); PLATELET COUNT 258 10x3/uL (130-400); RBC 4.72 10x6/uL (4.20-6.10); RDW 12.3 % (11.5-14.5)
[2020-08-31 07:11] LABS: ALBUMIN 3.3 g/dL (3.4-5.0); ANION GAP 11.7 mmol/L (8-16); BILIRUBIN - TOTAL 0.6 mg/dL (0.2-1.3); CALCIUM 8.7 mg/dL (8.5-10.1); CARBON DIOXIDE 26.5 mmol/L (21.0-32.0); CREATININE - SERUM 1.5 mg/dL (0.6-1.3); MAGNESIUM - SERUM 1.7 mg/dL (1.8-2.4); PHOSPHOROUS 3.1 mg/dL (2.5-4.9); POTASSIUM - SERUM 4.2 mmol/L (3.5-5.1); PROTEIN - SERUM 6.2 g/dL (6.4-8.2)
--- NOTE | 2020-08-31 08:41 | NUR ---
PT LAYING IN BED, NO SIGNS OF DISTRESS, PT REPORTS NO MORE BM'S SINCE ABOUT 4AM
[2020-08-31 09:04] VITALS: BP 116/62
[2020-08-31 12:21] VITALS: BP 131/68
[2020-08-31 16:13] VITALS: BP 143/66
[2020-08-31 19:51] VITALS: BP 136/58
[2020-09-01 04:44] VITALS: BP 149/63
[2020-09-01 04:53] LABS: BASOPHILS 0.2 % (0-2); EOSINOPHILS 5.4 % (0-7); HEMATOCRIT 38.4 % (42.0-54.0); HEMOGLOBIN 13.1 g/dL (13.5-17.5); IMMATURE GRANULOCYTES 0.4 % (0-5); LYMPHOCYTE ABS# 1.53 10x3/uL (1.32-3.57); LYMPHOCYTES 26.8 % (15-50); MCH 28.4 pg (26.0-34.0); MCHC 34.1 g/dL (31.0-37.0); MCV 83.1 fL (80.0-100.0); MEAN PLATELET VOLUME 8.4 fL (7.4-10.4); MONOCYTES 9.8 % (2-11); NEUTROPHIL ABS# 3.28 10x3/uL (1.78-5.38); NEUTROPHILS 57.4 % (40-80); PLATELET COUNT 254 10x3/uL (130-400); RBC 4.62 10x6/uL (4.20-6.10); RDW 12.2 % (11.5-14.5); WBC 5.7 10x3/uL (4.8-10.8)
[2020-09-01 05:19] LABS: ALBUMIN 3.2 g/dL (3.4-5.0); ANION GAP 11.6 mmol/L (8-16); BILIRUBIN - TOTAL 0.4 mg/dL (0.2-1.3); CALCIUM 8.7 mg/dL (8.5-10.1); CREATININE - SERUM 1.6 mg/dL (0.6-1.3); MAGNESIUM - SERUM 1.6 mg/dL (1.8-2.4); PHOSPHOROUS 3.4 mg/dL (2.5-4.9); POTASSIUM - SERUM 3.6 mmol/L (3.5-5.1); PROTEIN - SERUM 6.4 g/dL (6.4-8.2)
--- NOTE | 2020-09-01 06:45 | NUR ---
I have reviewed this patient and I concur with the Shift Assessment completed by the Licensed Practical Nurse today this shift.
[2020-09-01 09:07] VITALS: BP 103/52
--- NOTE | 2020-09-01 10:35 | MORECARE ---
CASE MANAGEMENT DISCHARGE SUMMARY PATIENT: MODESTO PEACOCK UNIT: [id number] ADM DATE: 08/29/20 AGE: 64 : 57 SEX: M ROOM/BED: D.2209 AUTHOR: MARCIE DINH PHYSICIAN: REFERRING PHYSICIAN: IVAN VALDEZ MD DATE OF SERVICE: 09/01/20 Discharge Plan Patient Name: MODESTO PEACOCK Facility: [facility]:[place] : 1955 Planned Disposition: Home or Self Care Anticipated Discharge Date: Discharge Date: Expected LOS: Initial Reviewer: [email or web address] Initial Review Date: 08/29/2020 Generated: 09/01/20 11:34 am DCPIA - Discharge Planning Initial Assessment Updated by [email or web address]: Rosalba Catalan on 09/01/20 10:33 am * Is the patient Alert and Oriented? Yes * How many steps to enter\exit or inside your home? * PCP DORIS [facility] [address] * Preadmission Environment Home with Family * ADLs Independent * Equipment None * List name and contact numbers for known caregivers / representatives who currently or will assist patient after discharge: REMEDIOS ( ) [phone] * Verbal permission to speak to the caregivers and representatives has been obtained from the patient. N/A * Community resources currently utilized None * Additional services required to return to the preadmission environment? No * Can the patient safely return to the preadmission environment? Yes * Has this patient been hospitalized within the prior 30 days at any hospital? No Patient Name: MODESTO PEACOCK Page 73812 at 1035 All edits/amendments must be made on the electronic document DICTATION DATE: 09/01/20 1034 PAROLE OR PROBATION OFFICER: RICKEY 09/01/20 1034 RPT#: [id number] DC DATE: STATUS: ADM IN [facility] [address] [place] [address] END OF REPORT
--- NOTE | 2020-09-01 10:45 | MORECARE ---
CASE MANAGEMENT DISCHARGE SUMMARY PATIENT: MODESTO PEACOCK UNIT: [id number] ADM DATE: 08/29/20 AGE: 64 : 57 SEX: M ROOM/BED: D.2209 AUTHOR: ALLEGRA,DOC PHYSICIAN: REFERRING PHYSICIAN: IVAN VALDEZ MD DATE OF SERVICE: 09/01/20 Discharge Plan Patient Name: MODESTO PEACOCK Facility: [facility]:[place] : 1955 Planned Disposition: Home or Self Care Anticipated Discharge Date: Discharge Date: Expected LOS: Initial Reviewer: [email or web address] Initial Review Date: 08/29/2020 Generated: 09/01/20 11:44 am Comments DCP- Discharge Planning Updated by [email or web address]: Rosalba Catalan on 09/01/20 9:[address] Patient Name: MODESTO PEACOCK Admission Status: ER Accout number: [id number] Admission Date: 08-29-2020 : 1955 Admission Diagnosis:UNSP INTESTNL OBST, UNSP TO PARTIAL VERSUS COMPLETE Attending: NANI Current LOS: 3 Anticipated DC Date: Planned Disposition: Home or Self Care Primary Insurance: [employer] EXCHANGE Discharge Planning Comments: CM met with patient to complete initial dc planning assessment. CM educated patient on the CM role and verbal consent given by patient to complete assessment. Patient lives at home with his where he states he is independent with his care. At discharge patient plans to return home and feels this is a safe discharge. His will be his chassis driver home today. CM discussed availability of home health, rehab services, and medical equipment. Patient denied known discharge needs at this time. CM will continue to follow and will assist as needed with dc plans/needs Shipwright Supervisor: Rosalba Catalan DCPIA - Discharge Planning Initial Assessment Updated by [email or web address]: Rosalba Catalan on 09/01/20 10:33 am * Is the patient Alert and Oriented? Yes * How many steps to enter\exit or inside your home? * PCP DORIS * Pharmacy [facility] [address] * Preadmission Environment Home with Family * ADLs Independent * Equipment None * List name and contact numbers for known caregivers / representatives who currently or will assist patient after discharge: REMEDIOS ( ) [phone] * Verbal permission to speak to the caregivers and representatives has been obtained from the patient. N/A * Community resources currently utilized None * Additional services required to return to the preadmission environment? No * Can the patient safely return to the preadmission environment? Yes * Has this patient been hospitalized within the prior 30 days at any hospital? No Last DP export: 09/01/20 9:35 am Patient Name: MODESTO PEACOCK Page 70722 at 1045 All edits/amendments must be made on the electronic document DICTATION DATE: 09/01/20 1045 PATIENT TRANSPORTER: RICKEY 09/01/20 1045 RPT#: [id number] DC DATE: STATUS: ADM IN [facility] [address] [place] [address] END OF REPORT
--- NOTE | 2020-09-02 09:20 | MORECARE ---
CASE MANAGEMENT DISCHARGE SUMMARY PATIENT: MODESTO PEACOCK UNIT: [id number] ADM DATE: 08/29/20 AGE: 64 : 57 SEX: M ROOM/BED: D.2209 AUTHOR: ALLEGRA,DOC PHYSICIAN: REFERRING PHYSICIAN: IVAN VALDEZ MD DATE OF SERVICE: 09/02/20 Discharge Plan Patient Name: MODESTO PEACOCK Facility: [facility]:[place] : 1955 Planned Disposition: Home or Self Care Anticipated Discharge Date: Discharge Date: 09/01/2020 Expected LOS: Initial Reviewer: [email or web address] Initial Review Date: 08/29/2020 Generated: 09/02/20 10:19 am Comments DCP- Discharge Planning Updated by [email or web address]: Rosalba Catalan on 09/01/20 9:[address] Patient Name: MODESTO PEACOCK Admission Status: ER Accout number: [id number] Admission Date: 08-29-2020 : 1955 Admission Diagnosis:UNSP INTESTNL OBST, UNSP TO PARTIAL VERSUS COMPLETE Attending: NANI Current LOS: 3 Anticipated DC Date: Planned Disposition: Home or Self Care Primary Insurance: [employer] EXCHANGE Discharge Planning Comments: CM met with patient to complete initial dc planning assessment. CM educated patient on the CM role and verbal consent given by patient to complete assessment. Patient lives at home with his where he states he is independent with his care. At discharge patient plans to return home and feels this is a safe discharge. His will be his truck driver heavy home today. CM discussed availability of home health, rehab services, and medical equipment. Patient denied known discharge needs at this time. CM will continue to follow and will assist as needed with dc plans/needs Asic Design Engineer: Rosalba Catalan DCPIA - Discharge Planning Initial Assessment Updated by [email or web address]: Rosalba Catalan on 09/01/20 10:33 am * Is the patient Alert and Oriented? Yes * How many steps to enter\exit or inside your home? * PCP DORIS * Pharmacy [facility] [address] * Preadmission Environment Home with Family * ADLs Independent * Equipment None * List name and contact numbers for known caregivers / representatives who currently or will assist patient after discharge: REMEDIOS ( ) [phone] * Verbal permission to speak to the caregivers and representatives has been obtained from the patient. N/A * Community resources currently utilized None * Additional services required to return to the preadmission environment? No * Can the patient safely return to the preadmission environment? Yes * Has this patient been hospitalized within the prior 30 days at any hospital? No Last DP export: 09/01/20 9:45 am Patient Name: MODESTO PEACOCK Page 30270 at 0920 All edits/amendments must be made on the electronic document DICTATION DATE: 09/02/20918 FILTER OPERATOR: RICKEY 09/02/20918 RPT#: [id number] DC DATE:09/01/20 STATUS: DIS IN [facility] [address] [place] [address] END OF REPORT
== END 2020-09-01 11:56 | disposition home or self-care (01) | DRG 389 ==
LOC: D.ER 09:04 → D.MS 12:25 → D.EDHOLD 12:25 → D.MS 13:34
PROVIDERS: Emergency Medicine; Family Medicine; ADMIT Family Medicine; ATTEND Family Medicine
DX: K56.609 Unspecified intestinal obstruction, unspecified as to partial versus complete obstruction (principal); E87.1 Hypo-osmolality and hyponatremia; N17.9 Acute kidney failure, unspecified; E11.65 Type 2 diabetes mellitus with hyperglycemia; E11.22 Type 2 diabetes mellitus with diabetic chronic kidney disease; I12.9 Hypertensive chronic kidney disease with stage 1 through stage 4 chronic kidney disease, or unspecified chronic kidney disease; N18.9 Chronic kidney disease, unspecified; E03.9 Hypothyroidism, unspecified; M19.90 Unspecified osteoarthritis, unspecified site; E83.42 Hypomagnesemia

== ENCOUNTER 2020-09-02 20:27 | Inpatient (IN) | payer BC ==
[~2020-09-02] VITALS: Ht 185.4 cm; Wt 110.2 kg
[~2020-09-02 20:27] MED LIST changes: +SODIUM BICARBO325 MG PO; +VITAMIN D325 MC1 PO
[2020-09-02 20:55] LABS: BASOPHILS 0.3 % (0-2); EOSINOPHILS 2.5 % (0-7); IMMATURE GRANULOCYTES 0.4 % (0-5); LYMPHOCYTE ABS# 1.37 10x3/uL (1.32-3.57); LYMPHOCYTES 13.9 % (15-50); MCH 28.5 pg (26.0-34.0); MCHC 34.1 g/dL (31.0-37.0); MCV 83.6 fL (80.0-100.0); MEAN PLATELET VOLUME 9.1 fL (7.4-10.4); MONOCYTES 7.7 % (2-11); NEUTROPHIL ABS# 7.41 10x3/uL (1.78-5.38); NEUTROPHILS 75.2 % (40-80); PLATELET COUNT 303 10x3/uL (130-400); RDW 12.8 % (11.5-14.5)
[2020-09-02 20:57] LABS: HEMATOCRIT 46.9 % (42.0-54.0); RBC 5.61 10x6/uL (4.20-6.10); WBC 9.9 10x3/uL (4.8-10.8)
[2020-09-02 21:02] LABS: BILIRUBIN NEGATIVE (NEGATIVE); KETONE NEGATIVE (NEGATIVE); NITRITE NEGATIVE (NEGATIVE); UROBILINOGEN NORMAL mg/dL (< 2)
[2020-09-02 21:04] LABS: CALC OSMOLALITY 273 mosm/kg (275-300); CALCIUM 9.8 mg/dL (8.5-10.1); CARBON DIOXIDE 31.8 mmol/L (21.0-32.0); CHLORIDE - SERUM 99 mmol/L (98-107); CREATININE - SERUM 1.6 mg/dL (0.6-1.3); GLUCOSE 146 mg/dL (74-106); SODIUM 135 mmol/L (136-145); UREA NITROGEN 14 mg/dL (7-18); eGFR NON AFRICAN AMERICAN 47 mL/min (90-120)
[2020-09-02 21:08] LABS: POTASSIUM - SERUM 5.6 mmol/L (3.5-5.1)
[2020-09-02 21:13] LABS: ALKALINE PHOSPHATASE 174 U/L (30-120); AMYLASE - SERUM 58 U/L (25-115); BILIRUBIN - TOTAL 0.69 mg/dL (0.2-1.3); LIPASE 219 U/L (73-393); TROPONIN-I < 0.017 ng/mL (0.000-0.060)
[2020-09-02 21:16] LABS: ALBUMIN 4.2 g/dL (3.4-5.0); ALT (SGPT) 41 U/L (10-68); PROTEIN - SERUM 8.8 g/dL (6.4-8.2)
[2020-09-02 21:24] VITALS: BP 113/69
[2020-09-02 21:30] VITALS: BP 125/75
[2020-09-02 22:59] LABS: APTT 28.2 SECONDS (22.8-39.4); INR 1.05 (0.85-1.17); PROTIME 12.7 SECONDS (11.6-15.0)
--- NOTE | 2020-09-02 23:03 | NUR ---
17F NGT INSERTED L NARE. IMMEDIATE 500 CC MENJIVAR COLORED RETURN PER LIS
[2020-09-03 00:29] VITALS: BP 120/53
[2020-09-03 04:00] VITALS: BP 118/62
[2020-09-03 06:59] LABS: BASOPHILS 0.2 % (0-2); EOSINOPHILS 2.6 % (0-7); HEMATOCRIT 43.1 % (42.0-54.0); HEMOGLOBIN 14.5 g/dL (13.5-17.5); IMMATURE GRANULOCYTES 0.2 % (0-5); LYMPHOCYTE ABS# 1.14 10x3/uL (1.32-3.57); LYMPHOCYTES 13.3 % (15-50); MCH 28.3 pg (26.0-34.0); MCHC 33.6 g/dL (31.0-37.0); MCV 84.2 fL (80.0-100.0); MEAN PLATELET VOLUME 8.7 fL (7.4-10.4); MONOCYTES 8.1 % (2-11); NEUTROPHIL ABS# 6.49 10x3/uL (1.78-5.38); NEUTROPHILS 75.6 % (40-80); PLATELET COUNT 253 10x3/uL (130-400); RBC 5.12 10x6/uL (4.20-6.10); RDW 12.9 % (11.5-14.5); WBC 8.6 10x3/uL (4.8-10.8)
[2020-09-03 07:08] LABS: APTT 25.6 SECONDS (22.8-39.4); INR 1.07 (0.85-1.17); PROTIME 12.9 SECONDS (11.6-15.0)
[2020-09-03 07:33] LABS: ALBUMIN 3.6 g/dL (3.4-5.0); BILIRUBIN - TOTAL 0.52 mg/dL (0.2-1.3); CALCIUM 8.7 mg/dL (8.5-10.1); CREATININE - SERUM 1.3 mg/dL (0.6-1.3); MAGNESIUM - SERUM 1.7 mg/dL (1.8-2.4); PROTEIN - SERUM 6.5 g/dL (6.4-8.2)
[2020-09-03 08:31] VITALS: BP 147/68
[2020-09-03 12:52] VITALS: BP 143/70
[2020-09-03 12:58] VITALS: Ht 185.4 cm; Wt 110.2 kg
[2020-09-03 19:40] VITALS: BP 145/78
[2020-09-03 20:00] VITALS: BP 145/78
--- NOTE | 2020-09-03 20:00 | NUR ---
ALERT RESTING IN BED, DENIES PAIN OR NEEDS AT THIS TIME, NG TUBE TO LEFT NARES CLAMPED AT THIS TIME ORDERED AFTER RECIEVING MAG CITRATE, ABD NOTE DISTENDED AND FIRM, SEE SHIFT ASSESSMENT, CALL LIGHT IN REACH
--- NOTE | 2020-09-03 22:30 | NUR ---
SS ENEMA GIVEN ORDERED WITH COLORED WATER AND FLECKS OF STOOL NOTED, PT STATES HAS HAD DIARRHEA STOOLS X 2 SINCE LAST NIGHT
[2020-09-04] VITALS (11 sets, daily range): BP systolic 123–148; BP diastolic 59–77
--- NOTE | 2020-09-04 00:15 | NUR ---
NG TUBE RECONECTED TO LOW INTERMITENT SUCTION, REPORTS ANOTHER BM AGAIN COLORED WATER WITH FEW FLECKS OF STOOL NOTED
[2020-09-04 05:50] LABS: BASOPHILS 0 % (0-2); EOSINOPHILS 0.1 % (0-7); HEMATOCRIT 38.8 % (42.0-54.0); HEMOGLOBIN 13.2 g/dL (13.5-17.5); IMMATURE GRANULOCYTES 0.5 % (0-5); LYMPHOCYTE ABS# 0.95 10x3/uL (1.32-3.57); LYMPHOCYTES 9.8 % (15-50); MCH 28.3 pg (26.0-34.0); MCV 83.3 fL (80.0-100.0); MEAN PLATELET VOLUME 8.5 fL (7.4-10.4); MONOCYTES 3.9 % (2-11); NEUTROPHIL ABS# 8.35 10x3/uL (1.78-5.38); NEUTROPHILS 85.7 % (40-80); PLATELET COUNT 279 10x3/uL (130-400); RBC 4.66 10x6/uL (4.20-6.10); RDW 12.7 % (11.5-14.5); WBC 9.7 10x3/uL (4.8-10.8)
[2020-09-04 06:25] LABS: ALBUMIN 3.2 g/dL (3.4-5.0); ANION GAP 12.1 mmol/L (8-16); BILIRUBIN - TOTAL 0.43 mg/dL (0.2-1.3); CALCIUM 8.6 mg/dL (8.5-10.1); CARBON DIOXIDE 25.1 mmol/L (21.0-32.0); CREATININE - SERUM 1.4 mg/dL (0.6-1.3); POTASSIUM - SERUM 4.2 mmol/L (3.5-5.1); PROTEIN - SERUM 6.7 g/dL (6.4-8.2)
--- NOTE | 2020-09-04 07:45 | NUR ---
ASSESSMENT PER FLOW SHEET. PATIENT IS WITHOUT DISTRESS. CALL LIGHT IN REACH.
--- NOTE | 2020-09-04 07:57 | NUR ---
TO GI LAB VIA BED.
--- NOTE | 2020-09-04 08:48 | NUR ---
BACK FROM LAB
--- NOTE | 2020-09-04 15:02 | NUR ---
CLEAR LIQUID TRAY PROVIDED.
--- NOTE | 2020-09-04 16:49 | NUR ---
REPOSITIONED AND ASSIST WITH DINNER TRAY.WANTS PAIN MEDS WHEN ABLE TO HAVE. REMAINS WITHOUT DISTRESS.CONT PLAN OF CARE
--- NOTE | 2020-09-04 16:51 | NUR ---
TOLERATING CLD. REMAINS WITHOUT DISTRESS.REPORTS SMALL BM. CONT PLAN OF CARE
--- NOTE | 2020-09-04 20:34 | NUR ---
REPORT RECEIVED, WILL CONT POC. PT A&O, UP IN BED TALKING WITH FAMILY AT BEDSIDE. NO S/S OF DISTRESS OBSERVED. RR EVEN & UNLABORED ON RA. BED LOCKED AND LOWERED, CL IN REACH. WILL CONT TO MONITOR.
--- NOTE | 2020-09-04 23:35 | NUR ---
ASSUMED CARE, SLEEPING, BREATHING EVEN UNLABORED, CALL LIGHT IN REACH
[2020-09-05 01:56] VITALS: BP 127/64
--- NOTE | 2020-09-05 02:37 | NUR ---
I have reviewed this patient and I concur with the Shift Assessment completed by the Licensed Practical Nurse today this shift.
[2020-09-05 04:55] VITALS: BP 137/60
[2020-09-05 05:18] LABS: BASOPHILS 0.1 % (0-2); EOSINOPHILS 4.6 % (0-7); HEMOGLOBIN 12.4 g/dL (13.5-17.5); IMMATURE GRANULOCYTES 0.5 % (0-5); LYMPHOCYTE ABS# 1.73 10x3/uL (1.32-3.57); LYMPHOCYTES 21.7 % (15-50); MCH 28.3 pg (26.0-34.0); MCHC 33.5 g/dL (31.0-37.0); MCV 84.5 fL (80.0-100.0); MEAN PLATELET VOLUME 8.5 fL (7.4-10.4); NEUTROPHIL ABS# 5.19 10x3/uL (1.78-5.38); NEUTROPHILS 65.1 % (40-80); PLATELET COUNT 269 10x3/uL (130-400); RBC 4.38 10x6/uL (4.20-6.10); RDW 12.9 % (11.5-14.5)
[2020-09-05 05:34] LABS: ALBUMIN 3.2 g/dL (3.4-5.0); ANION GAP 9.7 mmol/L (8-16); BILIRUBIN - TOTAL 0.42 mg/dL (0.2-1.3); CALCIUM 8.5 mg/dL (8.5-10.1); CARBON DIOXIDE 27.4 mmol/L (21.0-32.0); CREATININE - SERUM 1.4 mg/dL (0.6-1.3); PHOSPHOROUS 2.3 mg/dL (2.5-4.9); POTASSIUM - SERUM 4.1 mmol/L (3.5-5.1); PROTEIN - SERUM 6.3 g/dL (6.4-8.2)
--- NOTE | 2020-09-05 07:46 | NUR ---
RESTING IN BED, NO DISTRESS NOTED, IV INFUSING, CONT TO MONITOR SUGARS AND PAIN
[2020-09-05 07:47] VITALS: BP 135/58
--- NOTE | 2020-09-05 08:33 | NUR ---
PT STATES THAT HE IS UNAWARE OF RESULTS OF TEST THIS WEEK, STATES THAT NO DR HAS SPOKE WITH HIM
[2020-09-05 11:53] VITALS: BP 147/75
[2020-09-05 17:20] VITALS: BP 126/69
--- NOTE | 2020-09-05 19:47 | NUR ---
RECEIVED REPORT, ASSUMED CARE, BREATHING EVEN UNLABORED, CALL LIGHT IN REACH, BED LOWEST POSITION, DENIES NEEDS, NO S/S OF DISTRESS NOTED, ENCOURAGED PT TO NOTIFY STAFF OF ANY NEEDS, AT BEDSIDE
[2020-09-05 20:00] VITALS: BP 137/60
[2020-09-06] VITALS: BP 128/57
[2020-09-06 04:00] VITALS: BP 128/58
[2020-09-06 05:30] LABS: BASOPHILS 0.3 % (0-2); EOSINOPHILS 5.2 % (0-7); HEMATOCRIT 38.2 % (42.0-54.0); HEMOGLOBIN 12.8 g/dL (13.5-17.5); IMMATURE GRANULOCYTES 0.6 % (0-5); LYMPHOCYTE ABS# 1.51 10x3/uL (1.32-3.57); LYMPHOCYTES 21.9 % (15-50); MCHC 33.5 g/dL (31.0-37.0); MCV 83.6 fL (80.0-100.0); MEAN PLATELET VOLUME 8.8 fL (7.4-10.4); MONOCYTES 7.3 % (2-11); NEUTROPHIL ABS# 4.46 10x3/uL (1.78-5.38); NEUTROPHILS 64.7 % (40-80); PLATELET COUNT 266 10x3/uL (130-400); RBC 4.57 10x6/uL (4.20-6.10); RDW 12.8 % (11.5-14.5); WBC 6.9 10x3/uL (4.8-10.8)
[2020-09-06 05:46] LABS: ALBUMIN 3.3 g/dL (3.4-5.0); ANION GAP 10.1 mmol/L (8-16); BILIRUBIN - TOTAL 0.32 mg/dL (0.2-1.3); CALCIUM 8.6 mg/dL (8.5-10.1); CARBON DIOXIDE 27.9 mmol/L (21.0-32.0); CREATININE - SERUM 1.5 mg/dL (0.6-1.3); MAGNESIUM - SERUM 1.8 mg/dL (1.8-2.4); PROTEIN - SERUM 6.2 g/dL (6.4-8.2)
--- NOTE | 2020-09-06 07:50 | NUR ---
RESTING IN BED, NO DISTRESS NOTED, SKIN WARM AND DRY, SL IN PLACE
[2020-09-06 09:30] VITALS: BP 118/52
[2020-09-06 13:05] VITALS: BP 126/63
--- NOTE | 2020-09-06 13:13 | NUR ---
REVIEWED D/C ORDERS WITH PT, VOICED NO CONCERNS, REMOVED IV, TIP INTACT, WALKED FROM UNIT
--- NOTE | 2020-09-06 17:38 | MORECARE ---
CASE MANAGEMENT DISCHARGE SUMMARY PATIENT: MODESTO PEACOCK UNIT: [id number] ADM DATE: 09/02/20 AGE: 64 : 57 SEX: M ROOM/BED: D.2203 AUTHOR: MARCIE DINH PHYSICIAN: REFERRING PHYSICIAN: GINNY ALTMAN DO DATE OF SERVICE: 09/06/20 Discharge Plan Patient Name: MODESTO PEACOCK Facility: [facility]:[place] : 1955 Planned Disposition: Assisted Facility Anticipated Discharge Date: Discharge Date: 09/06/2020 Expected LOS: Initial Reviewer: [email or web address] Initial Review Date: 09/02/2020 Generated: 09/06/20 6:37 pm Comments DCP- Discharge Planning Updated by [email or web address]: Jalen Gautam on 09/06/20 3:[address] CM met with patient and spouse, Deborah Peacock ([phone]) to complete DC plan and to evaluate needs. Patient lives independently at home with his spouse. At discharge, the patient plans to return home and feels this is a safe discharge. CM discussed availability of home health, rehab services, and medical equipment. Patient declined HHS, SNF, IPR, and DME. Patient was recently admitted for small bowel obstruction and readmitted for similar symptoms. Patient stated that he was home for one day and he "...started belching and having nausea like last time". Patient stated that he was given no new medications at DC from last hospitalization and he was not able to follow up with his physician during his short time home. Patient voiced no other needs at this time and is satisfied with DC plan. Transportation provider at discharge will be with his spouse, Deborah. CM will continue to follow and will assist as needed with dc plans/needs. Last DP export: 09/03/20 12:46 p Patient Name: MODESTO PEACOCK Page 22364 at 0541 All edits/amendments must be made on the electronic document DICTATION DATE: 09/06/201737 TIME STUDY ANALYST: RICKEY 09/06/201737 RPT#: [id number] DC DATE:09/06/20 STATUS: DIS IN [facility] [address] [place] [address] END OF REPORT
--- NOTE | 2020-09-06 17:45 | MORECARE ---
CASE MANAGEMENT DISCHARGE SUMMARY PATIENT: MODESTO PEACOCK UNIT: [id number] ADM DATE: 09/02/20 AGE: 64 : 57 SEX: M ROOM/BED: D.2203 AUTHOR: ALLEGRA,DOC PHYSICIAN: REFERRING PHYSICIAN: GINNY ALTMAN DO DATE OF SERVICE: 09/06/20 Discharge Plan Patient Name: MODESTO PEACOCK Facility: [facility]:[place] : 1955 Planned Disposition: Residential Facility Anticipated Discharge Date: Discharge Date: 09/06/2020 Expected LOS: Initial Reviewer: [email or web address] Initial Review Date: 09/02/2020 Generated: 09/06/20 6:44 pm Comments DCP- Discharge Planning Updated by [email or web address]: Jalen Gautam on 09/06/20 3:[address] CM met with patient and spouse, Remedios Peacock ([phone]) to complete DC plan and to evaluate needs. Patient lives independently at home with his spouse. At discharge, the patient plans to return home and feels this is a safe discharge. CM discussed availability of home health, rehab services, and medical equipment. Patient declined HHS, SNF, IPR, and DME. Patient was recently admitted for small bowel obstruction and readmitted for similar symptoms. Patient stated that he was home for one day and he "...started belching and having nausea like last time". Patient stated that he was given no new medications at DC from last hospitalization and he was not able to follow up with his physician during his short time home. Patient voiced no other needs at this time and is satisfied with DC plan. Transportation provider at discharge will be with his spouse, Remedios. CM will continue to follow and will assist as needed with dc plans/needs. DCPIA - Discharge Planning Initial Assessment Updated by [email or web address]: Jalen Gautam on 09/06/20 5:39 pm * Is the patient Alert and Oriented? Yes * How many steps to enter\\exit or inside your home? 6/0 * PCP DORIS * Pharmacy [facility] [address] * Preadmission Environment Home with Family * ADLs Independent * Equipment None * Other Equipment n/a * List name and contact numbers for known caregivers / representatives who currently or will assist patient after discharge: REMEDIOS PEACOCK () [phone] * Verbal permission to speak to the caregivers and representatives has been obtained from the patient. Yes * Community resources currently utilized None * Please name any agencies selected above. n/a * Additional services required to return to the preadmission environment? No * Can the patient safely return to the preadmission environment? Yes * Has this patient been hospitalized within the prior 30 days at any hospital? Yes Last DP export: 09/06/20 3:38 p Patient Name: MODESTO PEACOCK Page 76119 at 1746 All edits/amendments must be made on the electronic document DICTATION DATE: 09/06/201744 IT HELP DESK ANALYST: RICKEY 09/06/201744 RPT#: [id number] DC DATE:09/06/20 STATUS: DIS IN [facility] [address] [place] [address] END OF REPORT
--- NOTE | 2020-09-07 08:27 | MORECARE ---
CASE MANAGEMENT DISCHARGE SUMMARY PATIENT: MODESTO PEACOCK UNIT: [id number] ADM DATE: 09/02/20 AGE: 64 : 57 SEX: M ROOM/BED: D.2203 AUTHOR: ALLEGRA,DOC PHYSICIAN: REFERRING PHYSICIAN: GINNY ALTMAN DO DATE OF SERVICE: 09/07/20 Discharge Plan Patient Name: MODESTO PEACOCK Facility: [facility]:[place] : 1955 Planned Disposition: Senior Care Facility Anticipated Discharge Date: Discharge Date: 09/06/2020 Expected LOS: Initial Reviewer: [email or web address] Initial Review Date: 09/02/2020 Generated: 09/07/20 9:26 am Comments DCP- Discharge Planning Updated by [email or web address]: Jalen Gautam on 09/06/20 3:[address] CM met with patient and spouse, Remedios Peacock ([phone]) to complete DC plan and to evaluate needs. Patient lives independently at home with his spouse. At discharge, the patient plans to return home and feels this is a safe discharge. CM discussed availability of home health, rehab services, and medical equipment. Patient declined HHS, SNF, IPR, and DME. Patient was recently admitted for small bowel obstruction and readmitted for similar symptoms. Patient stated that he was home for one day and he "...started belching and having nausea like last time". Patient stated that he was given no new medications at DC from last hospitalization and he was not able to follow up with his physician during his short time home. Patient voiced no other needs at this time and is satisfied with DC plan. Transportation provider at discharge will be with his spouse, Remedios. CM will continue to follow and will assist as needed with dc plans/needs. DCPIA - Discharge Planning Initial Assessment Updated by [email or web address]: Jalen Gautam on 09/06/20 5:39 pm * Is the patient Alert and Oriented? Yes * How many steps to enter\\exit or inside your home? 6/0 * PCP DORIS * Pharmacy [facility] [address] * Preadmission Environment Home with Family * ADLs Independent * Equipment None * Other Equipment n/a * List name and contact numbers for known caregivers / representatives who currently or will assist patient after discharge: REMEDIOS PEACOCK () [phone] * Verbal permission to speak to the caregivers and representatives has been obtained from the patient. Yes * Community resources currently utilized None * Please name any agencies selected above. n/a * Additional services required to return to the preadmission environment? No * Can the patient safely return to the preadmission environment? Yes * Has this patient been hospitalized within the prior 30 days at any hospital? Yes Last DP export: 09/06/20 3:45 p Patient Name: MODESTO PEACOCK Page 42670 at 0827 All edits/amendments must be made on the electronic document DICTATION DATE: 09/07/20826 KENNEL OPERATOR: RICKEY 09/07/20826 RPT#: [id number] DC DATE:09/06/20 STATUS: DIS IN [facility] [address] [place] [address] END OF REPORT
== END 2020-09-06 13:13 | disposition home or self-care (01) | DRG 336 ==
LOC: D.ER 20:27 → D.MS 22:57
PROVIDERS: Family Medicine; Family Medicine Adult Medicine; Surgery; ADMIT Family Medicine; ATTEND Family Medicine
PROC: 0D9670Z Drainage of Stomach with Drainage Device, Via Natural or Artificial Opening (ICD-10-PCS; 2020-09-03)
PROC: 0DNK4ZZ Release Ascending Colon, Percutaneous Endoscopic Approach (ICD-10-PCS; principal; 2020-09-03 11:45)
PROC: 0DNN4ZZ Release Sigmoid Colon, Percutaneous Endoscopic Approach (ICD-10-PCS; 2020-09-03 11:45)
PROC: 0DJD8ZZ Inspection of Lower Intestinal Tract, Via Natural or Artificial Opening Endoscopic (ICD-10-PCS; 2020-09-04)
PROC: 0DJ08ZZ Inspection of Upper Intestinal Tract, Via Natural or Artificial Opening Endoscopic (ICD-10-PCS; 2020-09-04)
DX: K56.609 Unspecified intestinal obstruction, unspecified as to partial versus complete obstruction (principal); E87.1 Hypo-osmolality and hyponatremia; N17.9 Acute kidney failure, unspecified; E11.65 Type 2 diabetes mellitus with hyperglycemia; E87.5 Hyperkalemia; E11.22 Type 2 diabetes mellitus with diabetic chronic kidney disease; I12.9 Hypertensive chronic kidney disease with stage 1 through stage 4 chronic kidney disease, or unspecified chronic kidney disease; N18.9 Chronic kidney disease, unspecified; E03.9 Hypothyroidism, unspecified; R74.01 Elevation of levels of liver transaminase levels; M19.90 Unspecified osteoarthritis, unspecified site